=== PATIENT | female | born 1960 | race Caucasian/White ===

== ENCOUNTER → 2019-12-09 13:20 | Outpatient (BNVA) | payer MEDICARE, MEDICAID, SELFPAY | PROVIDERS: PCP Internal Medicine; Referring Provider Internal Medicine; Visit Provider Dietitian, Registered | DX: Z76.89 Persons encountering health services in other specified circumstances (principal) ==

== ENCOUNTER → 2019-12-10 09:02 | Outpatient (BNVA) | payer MEDICARE, MEDICAID, SELFPAY | PROVIDERS: PCP Internal Medicine; Referring Provider Internal Medicine; Visit Provider Hospitalist | DX: J45.40 Moderate persistent asthma, uncomplicated (principal); G47.33 Obstructive sleep apnea (adult) (pediatric); R91.8 Other nonspecific abnormal finding of lung field; Z99.89 Dependence on other enabling machines and devices; Z87.891 Personal history of nicotine dependence; Z23 Encounter for immunization | CPT/HCPCS: 90471; 90686; 99214 ==

== ENCOUNTER 2019-12-27 10:07 | Outpatient (REF) | payer MEDICARE, MEDICAID, SELFPAY ==
--- NOTE | 2019-12-27 | PFT_ITS ---
Forced vital capacity is slightly reduced. FEV1, [id number], and MVV are normal. Post bronchodilator therapy, there is no improvement. Total lung capacity and residual volume slightly decreased. Diffusion capacity normal. CONCLUSION: There is a possible mild degree of restrictive pulmonary disorder. No evidence of obstructive airway disorder. MD MARY Elliott/REJI / [id number]
== END 2019-12-27 10:08 | disposition home or self-care (01) ==
LOC: HO.RESP 10:07
PROVIDERS: PCP Internal Medicine; Visit Provider Hospitalist
DX: J45.909 Unspecified asthma, uncomplicated (principal)
CPT/HCPCS: 94060; 94727; 94729

== ENCOUNTER → 2020-01-10 10:12 | Outpatient (BNVA) | payer MEDICARE, MEDICAID, SELFPAY | PROVIDERS: PCP Orthopaedic Surgery; Referring Provider Orthopaedic Surgery; Visit Provider Physician Assistant | DX: E66.01 Morbid (severe) obesity due to excess calories (principal); Z68.41 Body mass index [BMI] 40.0-44.9, adult | CPT/HCPCS: 99212 ==

== ENCOUNTER 2020-01-11 08:49 | Outpatient (REF) | payer MEDICARE, MEDICAID, SELFPAY ==
--- NOTE | 2020-01-11 08:52 | CT_ITS ---
EXAMINATION: CT CHEST SCREENING CLINICAL INFORMATION: Lung cancer screening COMPARISON: Previous chest CT January 2019 TECHNIQUE: Multidetector volumetric CT imaging of the chest is performed without contrast using low dose technique. Additional 2D coronal and sagittal reformatted images and axial 3D maximum intensity projection (MIP) images are generated on the CT workstation. This CT examination was performed using dose optimization techniques as appropriate, variously including the following: *Automated exposure control *Adjustment of mA and/or kV according to patient size (this includes techniques or standardized protocols for targeted exams where dose is matched to indication/reason for exam; i.e. extremities or head) *Use of iterative reconstruction technique DLP: 386 mGy-cm FINDINGS: LUNGS: There is a 2 mm left upper lobe nodule axial image 132 series 6 that is stable. There is a minimal scarring or subsegmental atelectasis in the the right middle lobe and lingula that is stable. The lungs are otherwise clear. MEDIASTINUM: The mediastinum is normal. PLEURA: There is no pleural effusion. No pleural mass or thickening. AXILLA: No lymphadenopathy. UPPER ABDOMEN: The liver is low in attenuation suggestive of fatty infiltration. OSSEOUS STRUCTURES: Unremarkable. CT/CT lung screening IMPRESSION: Stable small left upper lobe pulmonary nodule. Fatty liver. ASSESSMENT: Lung-RADS category 2: Benign RECOMMENDATION: Annual low-dose chest CT follow-up recommended.
== END 2020-01-11 08:50 | disposition home or self-care (01) ==
LOC: HO.CT 08:49
PROVIDERS: PCP Internal Medicine; Visit Provider Surgery
DX: Z12.2 Encounter for screening for malignant neoplasm of respiratory organs (principal); Z87.891 Personal history of nicotine dependence
CPT/HCPCS: 71250

== ENCOUNTER → 2020-01-25 08:07 | Outpatient (BNVA) | payer MEDICARE, MEDICAID, SELFPAY | PROVIDERS: Visit Provider Physician Assistant | DX: E66.01 Morbid (severe) obesity due to excess calories (principal); Z68.41 Body mass index [BMI] 40.0-44.9, adult | CPT/HCPCS: 99212 ==

== ENCOUNTER → 2020-02-07 08:15 | Outpatient (BNVA) | payer MEDICARE, MEDICAID, SELFPAY | PROVIDERS: PCP Internal Medicine; Visit Provider Physician Assistant | DX: Z76.89 Persons encountering health services in other specified circumstances (principal) ==

== ENCOUNTER → 2020-02-28 09:08 | Outpatient (BNVA) | payer MEDICARE, MEDICAID, SELFPAY | PROVIDERS: PCP Internal Medicine; Visit Provider Physician Assistant | DX: E66.01 Morbid (severe) obesity due to excess calories (principal); Z68.41 Body mass index [BMI] 40.0-44.9, adult | CPT/HCPCS: Q3014 ==

== ENCOUNTER → 2020-04-28 08:17 | Outpatient (BNVA) | payer MEDICARE, MEDICAID, SELFPAY | PROVIDERS: PCP Internal Medicine; Visit Provider Physician Assistant ==

== ENCOUNTER → 2020-05-30 10:29 | Outpatient (BNVA) | payer MEDICARE, MEDICAID, SELFPAY | PROVIDERS: PCP Internal Medicine; Visit Provider Surgery | DX: E66.01 Morbid (severe) obesity due to excess calories (principal); Z68.41 Body mass index [BMI] 40.0-44.9, adult | CPT/HCPCS: 99212 ==

== ENCOUNTER → 2020-06-05 09:19 | Outpatient (BNVA) | payer MEDICARE, MEDICAID, SELFPAY | PROVIDERS: PCP Internal Medicine; Visit Provider Hospitalist | DX: G47.33 Obstructive sleep apnea (adult) (pediatric) (principal); R91.8 Other nonspecific abnormal finding of lung field; J45.40 Moderate persistent asthma, uncomplicated | CPT/HCPCS: 99212 ==

== ENCOUNTER → 2020-09-07 10:26 | Outpatient (BNVA) | payer MEDICARE, MEDICAID, SELFPAY | PROVIDERS: PCP Internal Medicine; Visit Provider Surgery | DX: E66.01 Morbid (severe) obesity due to excess calories (principal); Z68.41 Body mass index [BMI] 40.0-44.9, adult | CPT/HCPCS: 99212 ==

== ENCOUNTER → 2020-11-08 08:53 | Outpatient (REF) | payer MEDICARE, MEDICAID, SELFPAY ==
--- NOTE | 2020-11-08 09:02 | ECG_ITS ---
Test Reason : SOB Blood Pressure : / mmHG Vent. Rate : 072 BPM Atrial Rate : 072 BPM P-R Int : 140 ms QRS Dur : 086 ms QT Int : 390 ms P-R-T Axes : 046 001 027 degrees QTc Int : 427 ms Normal sinus rhythm Normal ECG When compared with ECG of 17-NOV-2019 07:40, No significant change was found Referred By: Yarelis Charles Electronically Signed By:MALU OMSCOSO
== END ==
LOC: HO.CARD 08:53
PROVIDERS: Visit Provider Surgery
DX: Z01.818 Encounter for other preprocedural examination (principal); R06.02 Shortness of breath
CPT/HCPCS: 93005

== ENCOUNTER → 2021-02-16 08:59 | Outpatient (BNVA) | payer MEDICARE, MEDICAID, SELFPAY | PROVIDERS: PCP Internal Medicine; Visit Provider Hospitalist | DX: J45.41 Moderate persistent asthma with (acute) exacerbation (principal); J02.9 Acute pharyngitis, unspecified; R91.8 Other nonspecific abnormal finding of lung field; G47.33 Obstructive sleep apnea (adult) (pediatric); Z99.89 Dependence on other enabling machines and devices | CPT/HCPCS: 99212 ==

== ENCOUNTER 2021-03-06 08:23 | Outpatient (REF) | payer MEDICARE, MEDICAID, SELFPAY ==
[2021-03-06 09:23] LABS: Strep A Nucleic Acid Negative (Negative)
== END 2021-03-06 08:24 | disposition home or self-care (01) ==
LOC: HO.LNP 08:23
PROVIDERS: PCP Internal Medicine; Visit Provider Hospitalist
DX: J02.9 Acute pharyngitis, unspecified (principal); J45.40 Moderate persistent asthma, uncomplicated; G47.33 Obstructive sleep apnea (adult) (pediatric); R91.8 Other nonspecific abnormal finding of lung field; Z99.89 Dependence on other enabling machines and devices
CPT/HCPCS: 36415; 87651; 99212

== ENCOUNTER → 2021-04-30 10:16 | Outpatient (BNVA) | payer MEDICARE, MEDICAID, SELFPAY | PROVIDERS: PCP Internal Medicine; Visit Provider Hospitalist | DX: J45.40 Moderate persistent asthma, uncomplicated (principal); G47.33 Obstructive sleep apnea (adult) (pediatric); R91.8 Other nonspecific abnormal finding of lung field; Z79.899 Other long term (current) drug therapy; Z99.89 Dependence on other enabling machines and devices | CPT/HCPCS: 99212 ==

== ENCOUNTER 2021-05-10 10:58 | Outpatient (REF) | payer MEDICARE, MEDICAID, SELFPAY ==
--- NOTE | ~2021-05-10 | CT_ITS ---
EXAMINATION: CT CHEST SCREENING CLINICAL INFORMATION: Former smoker quit 10 years ago. 30 pack-year history. COMPARISON: Previous chest CT January 2010 TECHNIQUE: Multidetector volumetric CT imaging of the chest is performed without contrast using low dose technique. Additional 2D coronal and sagittal reformatted images and axial 3D maximum intensity projection (MIP) images are generated on the CT workstation. This CT examination was performed using dose optimization techniques as appropriate, variously including the following: *Automated exposure control *Adjustment of mA and/or kV according to patient size (this includes techniques or standardized protocols for targeted exams where dose is matched to indication/reason for exam; i.e. extremities or head) *Use of iterative reconstruction technique DLP: 69 mGy-cm FINDINGS: LUNGS: The 2 mm left upper lobe nodule axial image 125 is stable. The lungs are otherwise clear. No new pulmonary nodule is seen. No endobronchial or endotracheal lesion. MEDIASTINUM: The mediastinum is normal. PLEURA: There is no pleural effusion. No pleural mass or thickening. AXILLA: No lymphadenopathy. UPPER ABDOMEN: There is fatty infiltration of the liver. OSSEOUS STRUCTURES: Unremarkable. CT/CT lung screening IMPRESSION: Stable small left upper lobe nodule. Fatty liver. ASSESSMENT: Lung-RADS category 2: Benign RECOMMENDATION: Annual low-dose chest CT follow-up recommended.
== END 2021-05-10 10:59 | disposition home or self-care (01) ==
LOC: HO.CT 10:58
PROVIDERS: PCP Internal Medicine; Visit Provider Physician Assistant Medical
DX: Z87.891 Personal history of nicotine dependence (principal)
CPT/HCPCS: 71271

== ENCOUNTER → 2021-12-28 11:13 | Outpatient (BNVA) | payer MEDICARE, MEDICAID, SELFPAY | PROVIDERS: PCP Internal Medicine; Visit Provider Hospitalist | DX: J45.40 Moderate persistent asthma, uncomplicated (principal); G47.33 Obstructive sleep apnea (adult) (pediatric); R91.8 Other nonspecific abnormal finding of lung field; Z99.89 Dependence on other enabling machines and devices; Z23 Encounter for immunization | CPT/HCPCS: 90471; 90686; 99212 ==

== ENCOUNTER 2022-01-21 08:37 | Outpatient (REF) | payer MEDICARE, MEDICAID, SELFPAY ==
--- NOTE | 2022-01-21 | PFT_ITS ---
INDICATION: Asthma. SPIROMETRY: FEV1 to FVC 88% with an FEV1 of 1.89 L, which is 78% predicted. An FVC of 2.15 L, which is 68% predicted. No significant response to bronchodilators noted. Maximum voluntary ventilation 89% predicted. LUNG VOLUMES: Total lung capacity 73% predicted with an expiratory reserve volume of 16% predicted. DIFFUSION CAPACITY: DLCO 80% predicted. COMPARISONS: PFTs from 2020. INTERPRETATION: No obstructive ventilatory defects, and no significant response to bronchodilators noted. Normal maximum voluntary ventilation. The patient does have a restrictive ventilatory defect consistent with mild restrictive lung disease. In addition to that, there is a significant decrease in the expiratory reserve volume secondary to likely an elevated BMI. The diffusion capacity is within normal limits. When compared to 2019, there is a trend decrease in the FVC, a trend decrease in the FEV1, a trend decrease in the total lung capacity, and a trend increase in the diffusion capacity. Clinical correlation warranted. MD KRISS Mckeon/REJI / [id number]
== END 2022-01-21 08:38 | disposition home or self-care (01) ==
LOC: HO.RESP 08:37
PROVIDERS: PCP Internal Medicine; Visit Provider Hospitalist
DX: J45.909 Unspecified asthma, uncomplicated (principal)
CPT/HCPCS: 94060; 94727; 94729

== ENCOUNTER 2022-06-05 08:53 | Outpatient (REF) | payer MEDICARE, MEDICAID, SELFPAY ==
--- NOTE | ~2022-06-05 | CT_ITS ---
EXAMINATION: CT CHEST SCREENING CLINICAL INFORMATION: Personal history of nicotine dependence. COMPARISON: CT chest 05/10/2021. TECHNIQUE: Multidetector volumetric CT imaging of the chest is performed without contrast using low dose technique. Additional 2D coronal and sagittal reformatted images and axial 3D maximum intensity projection (MIP) images are generated on the CT workstation. This CT examination was performed using dose optimization techniques as appropriate, variously including the following: *Automated exposure control *Adjustment of mA and/or kV according to patient size (this includes techniques or standardized protocols for targeted exams where dose is matched to indication/reason for exam; i.e. extremities or head) *Use of iterative reconstruction technique DLP: 73 mGy-cm FINDINGS: LUNGS: The lungs are expanded and clear of acute pneumonic process. There is a 2 mm nodule left upper lobe posteriorly on axial image 37/9 and 129/6. No additional nodules seen. No ground-glass density or mass. MEDIASTINUM: The thyroid lobes are symmetrical and normal. The central trachea and the bronchi are widely patent. The heart size and great vessels are normal caliber. No pericardial effusion seen. No abnormal size mediastinal lymph nodes or mass. There are small reactive lymph nodes, maximum short axis 5 mm pretracheal image 19/3. CORONARY ARTERY CALCIFICATION: None visualized on this study. PLEURA: There is no pleural effusion. No pleural mass or thickening. AXILLA: No lymphadenopathy. UPPER ABDOMEN: Unremarkable OSSEOUS STRUCTURES: No aggressive lytic or sclerotic process. There is an old healed right 6th lateral rib fracture. CT/CT lung screening IMPRESSION: 2 mm nodule left upper lobe. No change from the last CT exam 05/10/2021. ASSESSMENT: Lung-RADS category 2: Benign RECOMMENDATION: Low-dose annual CT chest followup.
== END 2022-06-05 08:54 | disposition home or self-care (01) ==
LOC: HO.CT 08:53
PROVIDERS: PCP Internal Medicine; Visit Provider Physician Assistant Medical
DX: Z12.2 Encounter for screening for malignant neoplasm of respiratory organs (principal); Z87.891 Personal history of nicotine dependence
CPT/HCPCS: 71271

== ENCOUNTER 2022-12-30 09:21 | Outpatient (AMB) | payer MEDICARE, MEDICAID, SELFPAY ==
--- NOTE | 2022-12-30 09:22 | MHC.OFFVIS ---
Intake Vital Signs 12/30/22 09:23 Height 5 ft 3 in Weight 225 lb 15.581 oz BMI 40.0 BP 132/70 Blood Pressure Location Rt brachial Position Sitting Pulse 71 Pulse Source Doppler Pulse Oximetry (%) 97 Oxygen Delivery Method Room Air Intake Visit Reasons: COPD Allergies No Known Allergies Allergy (Verified 12/30/22 09:26) HPI HPI Comments History of Present Illness Details The patient is a 62-year-old woman with a known history of asthma, pulmonary nodules and obstructive sleep apnea on CPAP. Her respiratory therapy has been doing well on her current therapy. Although, she does complaint of tremors using the Symbicort. We did talk about trying to reduce the dose to 1 puff twice a day. however, if she continues with adverse side effects we can consider long-acting muscarinic antagonist. She does not use her rescue inhaler more than twice a week at this time. She does use her CPAP. The CPAP therapy continues to be affecting beneficial. Her new mask is much improved. She does use her CPAP more than 4 hours a night. In regards to her pulmonary nodules last CT scan of the chest personally reviewed by me was for January 2019. she is scheduled to have a repeat CT scan next month. She did also have some atelectasis/ pulmonary fibrosis noted on her last CT scan. 04/30/2021 the patient is here for a pulmonary follow-up visit. She is feeling better. She completed the course of antibiotics with good effect. She denies any significant coughing or shortness of breath or wheezing. Although still does not feel 100%. The patient has been using her CPAP. The CPAP therapy continues to be affecting beneficial. We did provide her with nasal pillows which for her seemed to work better than the full face mask although they bother her nostrils. Therefore, I will provide her with a N30i nasal cradle that she will try to see if she tolerates that better. Otherwise she continues with respiratory therapy 12/28/2021 the patient is here for a pulmonary follow-up visit. Overall the patient has been doing well. She did bring her CPAP. She has been using the CPAP more than 4 hours a night. The therapy has been affecting beneficial. We did not have to adjust her pressures since her AHI is below 1. the machine is still working well and she is getting supplies readily to her [employer] company. However, she has been getting a lot of condensation on the tubing. She does not have the heated tubing. I will send a prescription to her [employer] company requesting specifically heated tubing for her AirSense 10 APAP. In regards of her asthma she seems to be stable on the Symbicort. She is using it daily. She has not required her rescue inhaler. The patient is looking to exercise and lose weight. Although he has had hard time. She is been considering bariatric surgery. I did recommend she needs evaluate the possibility of medical weight loss programs. 12/30/2022 the patient is here for a pulmonary follow-up visit. Overall she is doing well from a respiratory status. She continues uses Symbicort inhaler. Next year is going to be off sedation she is going to have to change based on our formulary. Will deal with that next year. She has not had to use any prednisone and she has not had to use her rescue inhaler. She does complaint of right lower extremity pain and swelling. This been going on for few weeks. She is concerned about a potential blood clot. The patient does not give a history. Although because of her symptoms will go ahead and request an ultrasound to rule out DVT. The patient also has been using her CPAP at nighttime. CPAP therapy continues to be affecting beneficial. She does use it for more than 4 hours a night. The last time looked machine her settings were good and her AHI was well below 1. The patient is considering weight loss programs. She does not want have surgery. She is going to look into medical weight loss at this time. 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 does not with ongoing issue of the feeding need again does some swelling of the [facility] Medical History (Updated 12/30/22 @ 09:32 by Fly Main MD) Pharyngitis Asthma-COPD overlap syndrome Morbid obesity JACY on CPAP Pulmonary nodules Asthma Surgical History History of arthroscopic knee surgery S/P removal of thyroid nodule S/P left knee arthroscopy Hx of colonoscopy S/P endometrial ablation Previous back surgery Family History Father Bladder cancer Mother COPD (chronic obstructive pulmonary disease) Pacemaker HTN (hypertension) Brother No problems noted. Sister No problems noted. Sister No problems noted. Daughter No problems noted. Daughter No problems noted. Other Asthma Social History Household Members: Friend(s) Household Members Other:: friend Patient Tobacco Use Status: Former Tobacco user Quit Date: 2009 Years Smoked: 30 yrs Second Hand Smoke Exposure: No Review of Systems Const Denies night sweats and Reports weight gain ENT Denies change in voice, Reports dry mouth, Denies hoarseness, Denies lip swelling, Denies mouth pain, Reports nasal congestion, Denies nasal discharge, Denies sore throat and Denies tongue swelling Card Denies chest pain Resp Reports cough GI Denies abdominal pain Musc Denies no additional complaints Neuro Denies Neuro-related abnormal movements Psych Denies no additional complaints Steven/Lymph Denies easy bleeding and Denies lymphadenopathy Aller/Immun Denies lip swelling and Denies tongue swelling Physical Exam Vital Signs: Last Vital Signs Pulse 71 12/30/22 09:23 BP 132/70 12/30/22 09:23 Pulse Ox 97 12/30/22 09:23 Oxygen Delivery Method Room Air 12/30/22 09:23 BMI result Body Mass Index 40.0 Const General: alert Neck Neck: Yes normal visual inspection, Yes full ROM and Yes no lymphadenopathy Chest Chest palpation & inspection: normal inspection of the chest Resp Effort & Inspection: normal respiratory effort Auscultation: clear to auscultation bilaterally and no wheezes Cardio Rate: regular rate Rhythm: regular rhythm Heart sounds: S1 normal heart sound present and S2 normal heart sound present GI Palpation (GI): Soft to palpation and nontender Auscultation: normal bowel sounds Skin General skin exam: rashes and/or lesions noted Assessment & Plan Assessment & Plan (1) Asthma: Code(s): J45.909 - Unspecified asthma, uncomplicated Qualifiers: Asthma complication type: uncomplicated Asthma persistence: persistent Asthma severity: moderate Qualified Code(s): J45.40 - Moderate persistent asthma, uncomplicated (2) JACY on CPAP: Code(s): G47.33 - Obstructive sleep apnea (adult) (pediatric); Z99.89 - Dependence on other enabling machines and devices (3) Pulmonary nodules: Comment: Low-dose CT scan scheduled for January 2020. her last CT scan demonstrated subcentimeter pulmonary nodules in addition to bilateral atelectasis/ scarring Code(s): R91.8 - Other nonspecific abnormal finding of lung field (4) Right leg swelling: Code(s): M79.89 - Other specified soft tissue disorders Plan Continue respiratory dtherapy: Symbicort twice a day short-acting beta agonist as needed Continue CPAP therapy, provided N30i, Provided chin strap. Adjusted APAP RLE doppler requested neg for DVT Follow-up in 8-12 months Orders: Orders US venous duplex LE RT Today M79.89 - Other specified soft tissue disorders Coding Level of Care Code Est Pt Level 4 (76656) Diagnoses Moderate persistent asthma without complication J45.40 Asthma complication type: uncomplicated Asthma persistence: persistent Asthma severity: moderate JACY on CPAP G47.33; Z99.89 Pulmonary nodules R91.8 Right leg swelling M79.89 Time Spent (min) 16
[2022-12-30 09:23] VITALS: BP 132/70; PULSE 71; O2SAT 97; BMI 40.0
== END 2022-12-30 09:42 | disposition home or self-care (01) ==
PROVIDERS: PCP Internal Medicine; Visit Provider Hospitalist
DX: J45.40 Moderate persistent asthma, uncomplicated (principal); G47.33 Obstructive sleep apnea (adult) (pediatric); Z99.89 Dependence on other enabling machines and devices; R91.8 Other nonspecific abnormal finding of lung field; M79.89 Other specified soft tissue disorders
CPT/HCPCS: 99214

== ENCOUNTER → 2022-12-30 09:21 | Outpatient (BNVA) | payer MEDICARE, MEDICAID, SELFPAY | PROVIDERS: PCP Internal Medicine; Visit Provider Hospitalist ==

== ENCOUNTER 2022-12-30 09:44 | Outpatient (REF) | payer MEDICARE, MEDICAID, SELFPAY ==
--- NOTE | ~2022-12-30 | US_ITS ---
EXAMINATION: US VENOUS ULTRASOUND WITH DOPPLER LOWER EXTREMITY, RIGHT CLINICAL INFORMATION: Swelling COMPARISON: None available. TECHNIQUE: Ultrasound of the deep veins is performed from the hip to the calf with compression sonography and color and pulse Doppler assessment. Spectral analysis with color-flow imaging is performed. FINDINGS: There is normal venous compression and respiratory variation and augmented flow. The visualized common femoral vein, superficial femoral vein, profunda femoral vein, popliteal vein, and the trifurcation region shows no evidence of deep venous thrombosis. The contralateral common femoral vein demonstrates normal respiratory variation. US/US venous duplex LE RT IMPRESSION: No DVT demonstrated in the right lower extremity.
== END 2022-12-30 09:45 | disposition home or self-care (01) ==
LOC: HO.US 09:44
PROVIDERS: PCP Internal Medicine; Visit Provider Hospitalist
DX: R60.0 Localized edema (principal)
CPT/HCPCS: 93971; 99212

== ENCOUNTER 2023-06-26 13:33 | Outpatient (REF) | payer MEDICARE, MEDICAID, SELFPAY ==
--- NOTE | ~2023-06-26 | CT_ITS ---
EXAMINATION: CT CHEST SCREENING CLINICAL INFORMATION: Nicotine dependence, cigarettes, uncomplicated. The patient has a 24 pack-year history of smoking, having quit 24 years ago. COMPARISON: CT chest 06/05/2022. X-ray chest 06/19/2018. TECHNIQUE: Multidetector volumetric CT imaging of the chest is performed on a Siemens SOMATOM Definition scanner without contrast using low dose technique. Additional 2D coronal and sagittal reformatted images and axial 3D maximum intensity projection (MIP) images are generated on the CT workstation. This CT examination was performed using dose optimization techniques as appropriate, variously including the following: *Automated exposure control *Adjustment of mA and/or kV according to patient size (this includes techniques or standardized protocols for targeted exams where dose is matched to indication/reason for exam; i.e. extremities or head) *Use of iterative reconstruction technique DLP: 62 mGy-cm FINDINGS: LUNGS: 2 mm left upper lobe nodule is unchanged (5:96 compare prior 6:129). No new, increasing or concerning pulmonary nodules are present. The lungs are clear with no evidence of inflammation or nodules. MEDIASTINUM: The mediastinum is normal. CORONARY ARTERY CALCIFICATION: None visualized on this study. PLEURA: There is no pleural effusion. No pleural mass or thickening. AXILLA: No lymphadenopathy. UPPER ABDOMEN: There is hepatic steatosis. OSSEOUS STRUCTURES: Unremarkable. CT/CT lung screening IMPRESSION: No evidence of malignancy. ASSESSMENT: Lung-RADS category 2: Benign RECOMMENDATION: Routine annual low-dose CT screening in 12 months.
== END 2023-06-26 13:34 | disposition home or self-care (01) ==
LOC: HO.CT 13:33
PROVIDERS: PCP Internal Medicine; Visit Provider Nurse Practitioner Family
DX: Z12.2 Encounter for screening for malignant neoplasm of respiratory organs (principal); F17.210 Nicotine dependence, cigarettes, uncomplicated
CPT/HCPCS: 71271

== ENCOUNTER 2023-08-22 14:27 | Outpatient (AMB) | payer MEDICARE, MEDICAID, SELFPAY ==
--- NOTE | 2023-08-22 14:31 | A.OFFVIS_ITS ---
Vital Signs 08/22/23 14:32 Weight 220 lb 8 oz BP 110/58 L Blood Pressure Location Rt brachial Position Sitting Pulse 97 Pulse Source Pulse Oximeter Pulse Oximetry (%) 96 Oxygen Delivery Method Room Air Intake Visit Reasons: productive cough Allergies No Known Allergies Allergy (Verified 08/22/23 14:36) HPI HPI productive cough: Details: Annemarie is a pleasant 62 year old female, former smoker, followed by Dr. Main for asthma COPD overlap syndrome, pulmonary nodules and JACY on CPAP. At baseline, she has been moderately controlled on Symbicort. She did state that her symbicort will no longer be covered by insurance, so she has only been using half the daily dose, 2 inhalations daily. She notes that she has been without albuterol for quite some time and her duoneb is . Today she presents for an acute visit. She reports worsening harsh productive cough with yellow sputum that has specs of blood, chest tightness, increased dyspnea, wheezing and pain on inspiration/cough. She denies large volume hemoptysis. She denies fevers or chills. She reports being around grandchildren who were recently sick with upper respiratory symptoms. [facility] Medical History (Updated 08/22/23 @ 15:03 by Delaney Lester NP) Pharyngitis Asthma-COPD overlap syndrome Morbid obesity JACY on CPAP Pulmonary nodules Asthma Surgical History History of arthroscopic knee surgery S/P removal of thyroid nodule S/P left knee arthroscopy Hx of colonoscopy S/P endometrial ablation Previous back surgery Family History Father Bladder cancer Mother COPD (chronic obstructive pulmonary disease) Pacemaker HTN (hypertension) Brother No problems noted. Sister No problems noted. Sister No problems noted. Daughter No problems noted. Daughter No problems noted. Other Asthma Social History Household Members: Friend(s) Household Members Other:: friend Patient Tobacco Use Status: Former Tobacco user Years Smoked: 30 yrs Second Hand Smoke Exposure: No Review of Systems Const Denies chills, Denies excessive sweating, Denies fever(s), Denies headache(s) and Denies night sweats Eyes Denies dry eyes, Denies irritation and Denies itchy eyes ENT Reports Normal hearing present, Denies headache(s), Denies nasal congestion, Denies nasal discharge, Denies post nasal drip and Denies sore throat Card Denies chest pain, Denies chest pain at rest, Denies chest pain with activity, Denies claudication, Denies leg edema, Denies orthopnea and Denies paroxysmal nocturnal dyspnea Resp Denies stridor Musc Denies myalgias Neuro Reports Normal hearing present and Denies headache(s) Endo Denies excessive sweating Steven/Lymph Denies lymphadenopathy Aller/Immun Denies itchy eyes and Denies seasonal rhinorrhea Physical Exam Vital Signs: Last Vital Signs Pulse 97 08/22/23 14:32 BP 110/58 L 08/22/23 14:32 Pulse Ox 96 08/22/23 14:32 Oxygen Delivery Method Room Air 08/22/23 14:32 Const General: cooperative, no acute distress, well developed and alert Orientation/consciousness: patient oriented x3 Limitations: no limitations HEENT Head: Yes normal to inspection, Yes normocephalic and Yes atraumatic Ears: hearing grossly normal bilaterally and external ears normal Eyes General: appearance normal, both eyes and all related structures Eyelids: Yes eyelids normal Sclerae: sclerae normal EOM: EOMs intact bilaterally Neck Neck: Yes normal visual inspection and Yes no lymphadenopathy Lymphatic: no lymphadenopathy noted Chest Chest palpation & inspection: normal inspection of the chest Resp Other: postexhalation cough, improved with duoneb Effort & Inspection: normal respiratory effort, able to speak in complete sentences, no audible wheezes, no stridor, not tachypneic, no tripod positioning and no use of accessory muscles Cardio Jugular venous distension: no JVD Rate: regular rate Rhythm: regular rhythm Skin Other: warm, dry General skin exam: no rashes or lesions noted Neuro General: patient oriented x3 Cranial nerves: Yes Normal hearing present Cognition (Neuro): normal cognition Gait exam (Neuro): Normal gait present Extrem General: Yes normal to inspection, Yes capillary refill normal, Yes no clubbing, cyanosis or edema and Yes no pedal edema Psych Appearance: grossly normal and well kempt Speech and movement: Normal speech and movement present and Clear speech present Affect: normal affect Attitude: cooperative Thought process: Normal thought process present Thought content: Normal thought content present Insight: Good insight present (Psych) Judgement: Good judgement present (Psych) Office Procedures Nebulizer Treatment Nebulizer Treatment 48685-Sodgncpsz/MDI RX initial, or Nebulizer Subsequent Treatment Office Meds ipratropium 0.5 mg-albuterol 3 mg (2.5 mg base)/3 mL nebulization soln Performing Provider: Delaney Lester NP Performing Location: [facility] Administered by: Lena Mccurdy LPN on 08/22/23 15:19 Dose Route Admin Location Dispensed Lot Number Expiration Date [facility] [employer]idential [employer] 3 mL inhalation 3 mL [id number] 12/31/24 91926-461-47 [employer] Assessment & Plan Assessment & Plan (1) Asthma: Code(s): J45.909 - Unspecified asthma, uncomplicated Category: Medical Qualifiers: Asthma severity: moderate Asthma persistence: persistent Asthma complication type: uncomplicated Qualified Code(s): J45.40 - Moderate persistent asthma, uncomplicated (2) Bronchitis: Code(s): J40 - Bronchitis, not specified as acute or chronic Category: Medical Plan Annemarie presents with worsening bronchitic symptoms and poor control of asthma. Will send in zpak, prednisone and refill albuterol/duoneb. Will also send in Advair HFA in place of Symbicort, since this is no longer covered by insurance. She is aware to call if it is not covered and will reach out to insurance company for a list of covered inhalers. Given the pleuritic pain, will send for a CXR today and send in cough suppressant. Patient has tolerated in the past. She is aware if symptoms worsen to seek urgent care and if develops hemoptysis, a teaspoon, will seek emergent care. All questions were answered and patient is in agreement of plan. Will follow up with Dr. Main for regularly scheduled appointment or sooner if needed. Orders: Orders AMB Nebulizer Treatment 08/22/23 J44.9 - Chronic obstructive pulmonary disease, unspecified XR chest 2V 08/22/23 J40 - Bronchitis, not specified as acute or chronic Medications: New azithromycin For 250 mg dose pack: take 500 mg today (day 1), then 250 mg for 4 days (days 2-5) PO 6 tabs 0RF codeine-guaifenesin 10-100 mg/5 mL 10 mL PO Q6H PRN 473 mL 0RF cough fluticasone propion-salmeterol 115-21 mcg/actuation (Advair HFA) 2 puffs inhalation Q12H 12 grams 3RF prednisone 40 mg (2 x 20 mg) PO DAILY 10 tabs 0RF ipratropium-albuterol 0.5 mg-3 mg(2.5 mg base)/3 mL 3 mL inhalation Q6H PRN 90 mL 0RF wheezing J44.9 - Chronic obstructive pulmonary disease, unspecified Coding Level of Care Code Est Pt Level 4 (34350) Diagnoses Moderate persistent asthma without complication J45.40 Asthma severity: moderate Asthma persistence: persistent Asthma complication type: uncomplicated Bronchitis J40 CPT Codes Nebulizer Treatment - Nebulizer Treatment, initial or subsequent: 41634- Nebulizer/MDI RX initial, or Nebulizer Subsequent Treatment ([id number])
[2023-08-22 14:32] VITALS: BP 110/58; PULSE 97; O2SAT 96
== END 2023-08-22 15:20 | disposition home or self-care (01) ==
PROVIDERS: PCP Internal Medicine; Visit Provider Nurse Practitioner Family
DX: J45.40 Moderate persistent asthma, uncomplicated (principal); J40 Bronchitis, not specified as acute or chronic
CPT/HCPCS: 99214

== ENCOUNTER → 2023-08-22 14:27 | Outpatient (BNVA) | payer MEDICARE, MEDICAID, SELFPAY | PROVIDERS: PCP Internal Medicine; Visit Provider Nurse Practitioner Family | DX: J45.40 Moderate persistent asthma, uncomplicated (principal); J40 Bronchitis, not specified as acute or chronic | CPT/HCPCS: 94640; 99212 ==

== ENCOUNTER 2023-08-25 06:02 | Outpatient (REF) | payer MEDICARE, MEDICAID, SELFPAY ==
--- NOTE | ~2023-08-25 | XR_ITS ---
EXAMINATION: XR CHEST CLINICAL INFORMATION: Bronchitis. COMPARISON: 06/29/2018. TECHNIQUE: 2 views of the chest were obtained. FINDINGS: The cardiomediastinal silhouette is within normal limits and stable. There is no focal lung consolidation or pleural effusions. The bony structures and soft tissues are unremarkable. XR/XR chest 2V IMPRESSION: No acute cardiopulmonary process.
== END 2023-08-25 06:03 | disposition home or self-care (01) ==
LOC: HO.XRAY 06:02
PROVIDERS: PCP Internal Medicine; Visit Provider Nurse Practitioner Family
DX: J40 Bronchitis, not specified as acute or chronic (principal)
CPT/HCPCS: 71046

== ENCOUNTER 2023-10-09 14:42 | Outpatient (AMB) | payer MEDICARE, MEDICAID, SELFPAY ==
[2023-10-09 14:44] VITALS: BP 138/77; PULSE 80; O2SAT 98; BMI 38.6
--- NOTE | 2023-10-09 14:44 | A.OFFVIS_ITS ---
Vital Signs 10/09/23 14:44 Height 5 ft 3 in Weight 218 lb BMI 38.6 BP 138/77 Blood Pressure Location Lt brachial Position Sitting Pulse 80 Pulse Source Doppler Pulse Oximetry (%) 98 Oxygen Delivery Method Room Air Intake Visit Reasons: productive cough Allergies No Known Allergies Allergy (Verified 08/22/23 14:36) HPI Comments Details: The patient is a 62-year-old woman with a known history of asthma, pulmonary nodules and obstructive sleep apnea on CPAP. Her respiratory therapy has been doing well on her current therapy. Although, she does complaint of tremors using the Symbicort. We did talk about trying to reduce the dose to 1 puff twice a day. however, if she continues with adverse side effects we can c onsider long-acting muscarinic antagonist. She does not use her rescue inhaler more than twice a week at this time. She does use her CPAP. The CPAP therapy continues to be affecting beneficial. Her new mask is much improved. She does use her CPAP more than 4 hours a night. In regards to her pulmonary nodules last CT scan of the chest personally reviewed by me was for January 2019. she is scheduled to have a repeat CT scan next month. She did also have some atelectasis/ pulmonary fibrosis noted on her last CT scan. 04/30/2021 the patient is here for a pulmonary follow-up visit. She is feeling better. She completed the course of antibiotics with good effect. She denies any significant coughing or shortness of breath or wheezing. Although still does not feel 100%. The patient has been using her CPAP. The CPAP therapy continues to be affecting beneficial. We did provide her with nasal pillows which for her seemed to work better than the full face mask although they bother her nostrils. Therefore, I will provide her with a N30i nasal cradle that she will try to see if she tolerates that better. Otherwise she continues with respiratory therapy 12/28/2021 the patient is here for a pulmonary follow-up visit. Overall the patient has been doing well. She did bring her CPAP. She has been using the CPAP more than 4 hours a night. The therapy has been affecting beneficial. We did not have to adjust her pressures since her AHI is below 1. the machine is still working well and she is getting supplies readily to her [employer] company. However, she has been getting a lot of condensation on the tubing. She does not have the heated tubing. I will send a prescription to her [employer] company requesting specifically heated tubing for her AirSense 10 APAP. In regards of her asthma she seems to be stable on the Symbicort. She is using it daily. She has not required her rescue inhaler. The patient is looking to exercise and lose weight. Although he has had hard time. She is been considering bariatric surgery. I did recommend she needs evaluate the possibility of medical weight loss programs. 12/30/2022 the patient is here for a pulmonary follow-up visit. Overall she is doing well from a respiratory status. She continues uses Symbicort inhaler. Next year is going to be off sedation she is going to have to change based on our formulary. Will deal with that next year. She has not had to use any prednisone and she has not had to use her rescue inhaler. She does complaint of right lower extremity pain and swelling. This been going on for few weeks. She is concerned about a potential blood clot. The patient does not give a history. Although because of her symptoms will go ahead and request an ultrasound to rule out DVT. The patient also has been using her CPAP at nighttime. CPAP therapy continues to be affecting beneficial. She does use it for more than 4 hours a night. The last time looked machine her settings were good and her AHI was well below 1. The patient is considering weight loss programs. She does not want have surgery. She is going to look into medical weight loss at this time. She will continue with current respiratory therapy will follow-up in a year's time. 10/09/2023 the patient is here for a pulmonary follow-up visit. The patient overall has been doing fair. At least from a CPAP standpoint the patient has been doing well. The CPAP therapy has been affecting beneficial. She does use her machine every night for more than 4 hours. She did bring it in. She does have an over AirSense 10. Her AHI is well below 1 which is reassuring. We did not have to make any changes on the actual settings. Although I did adjust the temperature and humidity. I did teach her how to use it for her own. Respiratory was the patient is doing well on the current respiratory inhalers. She is also participating in the lung cancer screening program and has been demonstrates stable nodules which is reassuring. We personally reviewed the CT scan together. In the meantime the patient has been having this issue with muscle weakness and pain. She did have an elevated sedimentation rate. SAPPHIRE negative. She does have some increased shortness of breath therefore unclear if this is a component of myositis that may be contributing to her shortness of breath. [id number] severity. Will go ahead and request additional blood work to see if this any myositis component or any connective tissue disease related disease. Indeed it will be important specially if is resulting worsening respiratory symptoms. Otherwise will follow-up in 6-12 months. The patient has any issues prior to the next visit she is to call for an earlier evaluation. [facility] Medical History (Updated 10/09/23 @ 22:51 by Fly Main MD) Pharyngitis Asthma-COPD overlap syndrome Morbid obesity JACY on CPAP Pulmonary nodules Asthma Surgical History History of arthroscopic knee surgery S/P removal of thyroid nodule S/P left knee arthroscopy Hx of colonoscopy S/P endometrial ablation Previous back surgery Family History Father Bladder cancer Mother COPD (chronic obstructive pulmonary disease) Pacemaker HTN (hypertension) Brother No problems noted. Sister No problems noted. Sister No problems noted. Daughter No problems noted. Daughter No problems noted. Other Asthma Social History Household Members: Friend(s) Household Members Other:: friend Patient Tobacco Use Status: Former Tobacco user Years Smoked: 30 yrs Second Hand Smoke Exposure: No Review of Systems Const Denies night sweats and Reports weight gain ENT Denies change in voice, Reports dry mouth, Denies hoarseness, Denies lip swelling, Denies mouth pain, Reports nasal congestion, Denies nasal discharge, Denies sore throat and Denies tongue swelling Card Denies chest pain Resp Reports cough GI Denies abdominal pain Musc Reports as per HPI, Reports myalgias and Reports muscle weakness Neuro Denies Neuro-related abnormal movements Psych Denies no additional complaints Steven/Lymph Denies easy bleeding and Denies lymphadenopathy Aller/Immun Denies lip swelling and Denies tongue swelling Physical Exam Vital Signs: Last Vital Signs Pulse 80 10/09/23 14:44 BP 138/77 10/09/23 14:44 Pulse Ox 98 10/09/23 14:44 Oxygen Delivery Method Room Air 10/09/23 14:44 BMI result Body Mass Index 38.6 Const General: alert Orientation/consciousness: oriented to person, oriented to place and oriented to time Neck Neck: Yes normal visual inspection, Yes full ROM and Yes no lymphadenopathy Chest Chest palpation & inspection: normal inspection of the chest Resp Effort & Inspection: normal respiratory effort Auscultation: clear to auscultation bilaterally and no wheezes Cardio Rate: regular rate Rhythm: regular rhythm Heart sounds: S1 normal heart sound present and S2 normal heart sound present GI Palpation (GI): Soft to palpation and nontender Auscultation: normal bowel sounds Skin General skin exam: rashes and/or lesions noted Neuro General: oriented to person, oriented to place and oriented to time Motor exam (neuro): 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 The patient has a 24 pack-year history of smoking, having quit 24 years ago. COMPARISON: CT chest 06/05/2022. X-ray chest 06/19/2018. TECHNIQUE: Multidetector volumetric CT imaging of the chest is performed on a Siemens SOMATOM Definition scanner without contrast using low dose technique. Additional 2D coronal and sagittal reformatted images and axial 3D maximum intensity projection (MIP) images are generated on the CT workstation. This CT examination was performed using dose optimization techniques as appropriate, variously including the following: *Automated exposure control *Adjustment of mA and/or kV according to patient size (this includes techniques or standardized protocols for targeted exams where dose is matched to indication/reason for exam; i.e. extremities or head) *Use of iterative reconstruction technique DLP: 62 mGy-cm FINDINGS: LUNGS: 2 mm left upper lobe nodule is unchanged (5:96 compare prior 6:129). No new, increasing or concerning pulmonary nodules are present. The lungs are clear with no evidence of inflammation or nodules. MEDIASTINUM: The mediastinum is normal. CORONARY ARTERY CALCIFICATION: None visualized on this study. PLEURA: There is no pleural effusion. No pleural mass or thickening. AXILLA: No lymphadenopathy. UPPER ABDOMEN: There is hepatic steatosis. OSSEOUS STRUCTURES: Unremarkable. CT/CT lung screening IMPRESSION: No evidence of malignancy. ASSESSMENT: Lung-RADS category 2: Benign RECOMMENDATION: Routine annual low-dose CT screening in 12 months. Dictated By: Lee Levi MD Signed By: <Electronically signed by Lee Levi MD in OV> 06/30/23 1419 DD/ 1405 TD/TT: Outdoor Illuminating Engineer: JENNIFER Assessment & Plan Assessment & Plan (1) Asthma: Code(s): J45.909 - Unspecified asthma, uncomplicated Category: Medical Qualifiers: Asthma complication type: uncomplicated Asthma persistence: persistent Asthma severity: moderate Qualified Code(s): J45.40 - Moderate persistent asthma, uncomplicated (2) JACY on CPAP: Code(s): G47.33 - Obstructive sleep apnea (adult) (pediatric); Z99.89 - Dependence on other enabling machines and devices Category: Medical (3) Pulmonary nodules: Comment: Low-dose CT scan scheduled for January 2020. her last CT scan demonstrated subcentimeter pulmonary nodules in addition to bilateral atelectasis/ scarring Code(s): R91.8 - Other nonspecific abnormal finding of lung field Category: Medical (4) Right leg swelling: Code(s): M79.89 - Other specified soft tissue disorders Category: Medical (5) Myositis: Comment: evaluation Code(s): M60.9 - Myositis, unspecified Category: Medical Qualifiers: Myositis type: unspecified type Myositis location: unspecified site Qualified Code(s): M60.9 - Myositis, unspecified Plan Continue respiratory dtherapy: Symbicort twice a day short-acting beta agonist as needed Continue CPAP therapy, provided N30i, Provided chin strap. Adjusted APAP bloodwork LDCT 06/2024 Follow-up in 6-12 months Orders: Orders Anti DNA DS Antibody Today M60.9 - Myositis, unspecified Cyclic Citrullinated Peptide Today M60.9 - Myositis, unspecified Myositis Assess JO1 Ab Today M60.9 - Myositis, unspecified Sjogren's Antibodies Today H04.123 - Dry eye syndrome of bilateral lacrimal glands Creatine Kinase Total Today M60.9 - Myositis, unspecified Erythrocyte Sedimentation Rate Today M60.9 - Myositis, unspecified Medications: New modafinil 100 mg PO DAILY 30 days 30 tabs 3RF Coding Level of Care Code Est Pt Level 4 (82631) Diagnoses Moderate persistent asthma without complication J45.40 Asthma complication type: uncomplicated Asthma persistence: persistent Asthma severity: moderate JACY on CPAP G47.33; Z99.89 Pulmonary nodules R91.8 Right leg swelling M79.89 Myositis, unspecified myositis type, unspecified site M60.9 Myositis type: unspecified type Myositis location: unspecified site Time Spent (min) 18
== END 2023-10-09 15:12 | disposition home or self-care (01) ==
PROVIDERS: PCP Internal Medicine; Visit Provider Hospitalist
DX: J45.40 Moderate persistent asthma, uncomplicated (principal); G47.33 Obstructive sleep apnea (adult) (pediatric); Z99.89 Dependence on other enabling machines and devices; R91.8 Other nonspecific abnormal finding of lung field; M79.89 Other specified soft tissue disorders; M60.9 Myositis, unspecified
CPT/HCPCS: 99214

== ENCOUNTER → 2023-10-09 14:42 | Outpatient (BNVA) | payer MEDICARE, MEDICAID, SELFPAY | PROVIDERS: PCP Internal Medicine; Visit Provider Hospitalist | DX: J45.40 Moderate persistent asthma, uncomplicated (principal); G47.33 Obstructive sleep apnea (adult) (pediatric); R91.8 Other nonspecific abnormal finding of lung field; M79.89 Other specified soft tissue disorders; M60.9 Myositis, unspecified; F17.210 Nicotine dependence, cigarettes, uncomplicated; Z99.89 Dependence on other enabling machines and devices | CPT/HCPCS: 99212 ==

== ENCOUNTER 2023-10-10 08:35 | Outpatient (REF) | payer MEDICARE, MEDICAID, SELFPAY ==
[2023-10-10 10:04] LABS: Erythrocyte Sedimentation Rate 24 MM/HR (0-20)
[2023-10-14 14:19] LABS: Cyclic Citrullinated Peptide <16 UNITS
[2023-10-16 11:26] LABS: Anti DNA DS Antibody <1; Antibody to SS-A Antigen <1.0 NEG; Antibody to SS-B Antigen <1.0 NEG
== END 2023-10-10 08:36 | disposition home or self-care (01) ==
LOC: HO.LAB 08:35
PROVIDERS: PCP Internal Medicine; Visit Provider Hospitalist
DX: M60.9 Myositis, unspecified (principal); H04.123 Dry eye syndrome of bilateral lacrimal glands
CPT/HCPCS: 36415; 82550; 85652; 86200; 86225; 86235

== ENCOUNTER 2024-04-06 09:41 | Outpatient (AMB) | payer MEDICARE, MEDICAID, SELFPAY ==
--- NOTE | 2024-04-06 09:44 | MHC.OFFVIS ---
Vital Signs 04/06/24 09:45 Height 5 ft 3 in Weight 208 lb 5.389 oz BMI 36.9 BP 130/76 Blood Pressure Location Rt brachial Position Sitting Pulse 72 Pulse Source Pulse Oximeter Pulse Oximetry (%) 96 Oxygen Delivery Method Room Air Intake Visit Reasons: productive cough Allergies No Known Allergies Allergy (Verified 04/06/24 09:48) HPI Comments Details: The patient is a 63-year-old woman with a known history of asthma, pulmonary nodules and obstructive sleep apnea on CPAP. Her respiratory therapy has been doing well on her current therapy. Although, she does complaint of tremors using the Symbicort. We did talk about trying to reduce the dose to 1 puff twice a day. however, if she continues with adverse side effects we can consider long-acting muscarinic antagonist. She does not use her rescue inhaler more than twice a week at this time. She does use her CPAP. The CPAP therapy continues to be affecting beneficial. Her new mask is much improved. She does use her CPAP more than 4 hours a night. In regards to her pulmonary nodules last CT scan of the chest personally reviewed by me was for January 2019. she is scheduled to have a repeat CT scan next month. She did also have some atelectasis/ pulmonary fibrosis noted on her last CT scan. 04/30/2021 the patient is here for a pulmonary follow-up visit. She is feeling better. She completed the course of antibiotics with good effect. She denies any significant coughing or shortness of breath or wheezing. Although still does not feel 100%. The patient has been using her CPAP. The CPAP therapy continues to be affecting beneficial. We did provide her with nasal pillows which for her seemed to work better than the full face mask although they bother her nostrils. Therefore, I will provide her with a N30i nasal cradle that she will try to see if she tolerates that better. Otherwise she continues with respiratory therapy 12/28/2021 the patient is here for a pulmonary follow-up visit. Overall the patient has been doing well. She did bring her CPAP. She has been using the CPAP more than 4 hours a night. The therapy has been affecting beneficial. We did not have to adjust her pressures since her AHI is below 1. the machine is still working well and she is getting supplies readily to her [employer] company. However, she has been getting a lot of condensation on the tubing. She does not have the heated tubing. I will send a prescription to her [employer] company requesting specifically heated tubing for her AirSense 10 APAP. In regards of her asthma she seems to be stable on the Symbicort. She is using it daily. She has not required her rescue inhaler. The patient is looking to exercise and lose weight. Although he has had hard time. She is been considering bariatric surgery. I did recommend she needs evaluate the possibility of medical weight loss programs. 12/30/2022 the patient is here for a pulmonary follow-up visit. Overall she is doing well from a respiratory status. She continues uses Symbicort inhaler. Next year is going to be off sedation she is going to have to change based on our formulary. Will deal with that next year. She has not had to use any prednisone and she has not had to use her rescue inhaler. She does complaint of right lower extremity pain and swelling. This been going on for few weeks. She is concerned about a potential blood clot. The patient does not give a history. Although because of her symptoms will go ahead and request an ultrasound to rule out DVT. The patient also has been using her CPAP at nighttime. CPAP therapy continues to be affecting beneficial. She does use it for more than 4 hours a night. The last time looked machine her settings were good and her AHI was well below 1. The patient is considering weight loss programs. She does not want have surgery. She is going to look into medical weight loss at this time. She will continue with current respiratory therapy will follow-up in a year's time. 10/09/2023 the patient is here for a pulmonary follow-up visit. The patient overall has been doing fair. At least from a CPAP standpoint the patient has been doing well. The CPAP therapy has been affecting beneficial. She does use her machine every night for more than 4 hours. She did bring it in. She does have an over AirSense 10. Her AHI is well below 1 which is reassuring. We did not have to make any changes on the actual settings. Although I did adjust the temperature and humidity. I did teach her how to use it for her own. Respiratory was the patient is doing well on the current respiratory inhalers. She is also participating in the lung cancer screening program and has been demonstrates stable nodules which is reassuring. We personally reviewed the CT scan together. In the meantime the patient has been having this issue with muscle weakness and pain. She did have an elevated sedimentation rate. SAPPHIRE negative. She does have some increased shortness of breath therefore unclear if this is a component of myositis that may be contributing to her shortness of breath. [id number] severity. Will go ahead and request additional blood work to see if this any myositis component or any connective tissue disease related disease. Indeed it will be important specially if is resulting worsening respiratory symptoms. Otherwise will follow-up in 6-12 months. The patient has any issues prior to the next visit she is to call for an earlier evaluation. 04/06/2024 the patient is here for a pulmonary follow-up visit. The patient overall is doing well. The patient did get a new PAP therapy. The therapy has been affecting beneficial. She is still using the N30 I mask. She has very good filling. The patient has AHI is also well below 1. Current average pressure is 9 cm. Although, she feels like the machine is not giving her adequate pressure. Therefore, we got rid of the ramp she is going to start starting 8 and maximum pressure 16. In the meantime asthma has been stable. She has inhalers but she has not required them. In addition to that she just started a weight loss injection for her significant morbid obesity. She has already lost about 20 lb since she is very motivated. She is already feeling better with less lower extremity edema. This should also help her sleep apnea. She does have a CT scan scheduled for sometime in the spring of 2024. This is through the lung cancer screening program. Will follow-up in the fall. If any issues arise prior to that she will call for an earlier assessment. [facility] Medical History (Updated 10/09/23 @ 22:51 by Fly Main MD) Pharyngitis Asthma-COPD overlap syndrome Morbid obesity JACY on CPAP Pulmonary nodules Asthma Surgical History History of arthroscopic knee surgery S/P removal of thyroid nodule S/P left knee arthroscopy Hx of colonoscopy S/P endometrial ablation Previous back surgery Family History Father Bladder cancer Mother COPD (chronic obstructive pulmonary disease) Pacemaker HTN (hypertension) Brother No problems noted. Sister No problems noted. Sister No problems noted. Daughter No problems noted. Daughter No problems noted. Other Asthma Social History Household Members: Friend(s) Household Members Other:: friend Patient Tobacco Use Status: Former Tobacco user Years Smoked: 30 yrs Second Hand Smoke Exposure: No Review of Systems Const Denies night sweats and Reports weight loss ENT Denies change in voice, Reports dry mouth, Denies hoarseness, Denies lip swelling, Denies mouth pain, Reports nasal congestion, Denies nasal discharge, Denies sore throat and Denies tongue swelling Card Denies chest pain Resp Reports cough GI Denies abdominal pain Musc Reports as per HPI, Reports myalgias and Reports muscle weakness Neuro Denies Neuro-related abnormal movements Psych Denies no additional complaints Steven/Lymph Denies easy bleeding and Denies lymphadenopathy Aller/Immun Denies lip swelling and Denies tongue swelling Physical Exam Vital Signs: Last Vital Signs Pulse 72 04/06/24 09:45 BP 130/76 04/06/24 09:45 Pulse Ox 96 04/06/24 09:45 Oxygen Delivery Method Room Air 04/06/24 09:45 BMI result Body Mass Index 36.9 Const General: alert Orientation/consciousness: oriented to person, oriented to place and oriented to time Neck Neck: Yes normal visual inspection, Yes full ROM and Yes no lymphadenopathy Chest Chest palpation & inspection: normal inspection of the chest Resp Effort & Inspection: normal respiratory effort Auscultation: clear to auscultation bilaterally and no wheezes Cardio Rate: regular rate Rhythm: regular rhythm Heart sounds: S1 normal heart sound present and S2 normal heart sound present GI Palpation (GI): Soft to palpation and nontender Auscultation: normal bowel sounds Skin General skin exam: rashes and/or lesions noted Neuro General: oriented to person, oriented to place and oriented to time Motor exam (neuro): Abnormal motor strength present (3/5 hand compliance representative bilateral) Assessment & Plan Assessment & Plan (1) Asthma: Code(s): J45.909 - Unspecified asthma, uncomplicated Category: Medical Qualifiers: Asthma complication type: uncomplicated Asthma persistence: persistent Asthma severity: moderate Qualified Code(s): J45.40 - Moderate persistent asthma, uncomplicated (2) JACY on CPAP: Code(s): G47.33 - Obstructive sleep apnea (adult) (pediatric); Z99.89 - Dependence on other enabling machines and devices Category: Medical (3) Pulmonary nodules: Comment: Low-dose CT scan scheduled for January 2020. her last CT scan demonstrated subcentimeter pulmonary nodules in addition to bilateral atelectasis/ scarring Code(s): R91.8 - Other nonspecific abnormal finding of lung field Category: Medical (4) Right leg swelling: Code(s): M79.89 - Other specified soft tissue disorders Category: Medical Plan Continue respiratory dtherapy: Symbicort twice a day short-acting beta agonist as needed Continue CPAP therapy, provided N30i, Provided chin strap. Adjusted APAP LDCT 06/2024 Follow-up in 6-12 months Coding Level of Care Code Est Pt Level 4 (55024) Diagnoses Moderate persistent asthma without complication J45.40 Asthma complication type: uncomplicated Asthma persistence: persistent Asthma severity: moderate JACY on CPAP G47.33; Z99.89 Pulmonary nodules R91.8 Right leg swelling M79.89 Time Spent (min) 16
[2024-04-06 09:45] VITALS: BP 130/76; PULSE 72; O2SAT 96; BMI 36.9
--- OUTSIDE RECORDS SUMMARY | 2024-04-06 10:13 | XMS_ITS | Clinical Summary ---
Author Organization [facility] Address [address] [place] [address] Care Team Providers Care Gas Appliance Repairer Name Role Phone Unavailable Primary Care Provider Unavailabl e Medications valACYclovir (VALTREX) 500 mg tabletIndication s:Herpesviral infection of urogenital system, unspecified TAKE 1 TABLET BY MOUTH EVERY DAY 90 tablet 1 10/01/2019 Active Social History Tobacco Use Types Packs/Day Years Used Date Smoking Tobacco: Never Assessed Comments Unknown Sex and Gender Information Value Date Recorded Sex Assigned at Not on file Legal Sex Female 5:27 PM EST Gender Identity Not on file Sexual Orientation Not on file Plan of Treatment Health Maintenance Due Date Last Done Comments CT Colonography 1959 Colonoscopy 1959 Colorectal Cancer Screening 1959 FIT-DNA 1959 FIT 1959 FOBT 1959 Mammogram 1959 Sigmoidoscopy 1959 Annual Physical Exam 12/15/1977 Tdap and Td Vaccines Adult 12/15/1978 Pap Smear 12/15/1980 Cervical Cancer Screening 12/15/1989 HPV/Cotest 12/15/1989 Pneumococcal Vaccine: 50+ Ye ars (1 of 1 - PCV) 12/15/2009 Zoster Vaccines (1 of 2) 12/15/2009 COVID-19 Vaccine ( - 2023-2 5 season) 2023 Influenza Vaccine (#1) 2023 RSV 60+ (1 - 1-dose 75+ series) 12/15/2034 HIB Vaccines Aged Out No longer eligi ble based on patient's age to complete this topic HPV Vaccines Aged Out No longer eligi ble based on patient's age to complete this topic Hepatitis A Vaccines Aged Out No long er eligible based on patient's age to complete this topic IPV Vaccines Aged Out No longer eligi ble based on patient's age to complete this topic Meningococcal Vaccine Aged Out No rosa nida eligible based on patient's age to complete this topic RSV <20 Months Aged Out No longer malcom faria based on patient's age to complete this topic
--- OUTSIDE RECORDS SUMMARY | 2024-04-06 10:13 | XMS_ITS | Continuity of Care Document ---
Author Organization [facility] Address [address] [place] [address]- Care Team Providers Care Lead Android Developer Name Role Phone Adele CANNON, Laine Primary Care Physician Encounter [facility] Date(s): 03/02/24 - 04/01/24 [facility] [address] [place] [id number]- Attending Physician: Admtr, Ar8 Admitting Physician: Admtr, Ar8 Referring Physician: Admtr, Ar8 Encounter Type: Triage Allergies, Adverse Reactions, Alerts Substance Criticality Severity Reaction Reaction Severity Status tetracycline stomach bleeding Active morphine tongue swelling Acti ve Fluvirin eye redness/blurry A ctive Shingrix adivce not to t 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 Refills 5, Soft Stop, 09/15/23 3:05:00 PM EDT, Aerosol, Route to Pharmacy Electronically, [id number], [facility]/pharmacy #[id number], 159, cm, 09/15/23 14:41:00 EDT, Height, 94.8, kg, 03/14/22 10:22:00 EST, Dry Weight Start Date: 09/15/23 Status: Ordered Quantity: 8.5 Unit: g Repeat number: 6 albuterol inhaler (OP) 0 Refills, Maintenance Start Date: 04/26/19 Status: Ordered Repeat number: 1 Breo Ellipta 100 mcg-25 mcg/inh inhalation powder 1 puffs, Inhalation, Daily, # 30 each, 5 Refills, Maintenance, 04/23/23 9:48:00 AM EST, Powder, [facility]/pharmacy #[id number], NO SUBSTITUTIONS, 1 puffs Inhalation Daily, 159, cm, 11/26/22 9:43:00 EDT, Height, 94.8, kg, 03/14/22 10:22:00 EST, Dry Weight Start Date: 04/23/23 Status: Ordered Quantity: 30.0 Unit: each Repeat number: 6 duloxetine 20 mg oral enteric coated capsule 1 capsule, By Mouth, 2 times a day, # 180 capsule, 1 Refills, Maintenance, 02/20/24 1:48:00 PM EST,[facility] STORE [id number], 159, cm, 10/14/23 11:29:00 EDT, Height, 94.8, kg, 03/14/22 10:22:00 EST, Dry Weight Start Date: 02/20/24 Status: Ordered Quantity: 180.0 Unit: capsule Repeat number: 1 hydrochlorothiazide 25 mg oral tablet 1, tablet, By Mouth, Daily, # 90 tablet, Refills 3, Tot. Refills 3, Maintenance, 09/15/23 3:04:00 PMEDT, Route to Pharmacy Electronically, [facility]/pharmacy #[id number], 159, cm, 09/15/23 14:41:00 EDT, Height, 94.8, kg, 03/14/22 10:22:00 EST, Dry Weight Start Date: 09/15/23 Status: Ordered Quantity: 90.0 Unit: tablet Repeat number: 4 LORazepam 1 mg oral tablet See Instructions, TAKE 1 TABLET BY MOUTH TWICE A DAY NEEDED FOR ANXIETY MAY TAKE LESS, # 30 tablet, 0 Refills, Maintenance, 12/22/23 4:04:00 PM EDT, [facility]/pharmacy #[id number], 159, cm, 10/14/23 11:29:00 EDT, Height, 94.8, kg, 03/14/22 10:22:00 EST, Dry Weight Start Date: 12/22/23 Stop Date: 12/21/24 Status: Ordered Quantity: 30.0 Unit: tablet Repeat number: 1 LORazepam 1 mg oral tablet 1 tablet = 1 mg, By Mouth, 2 times a day, PRN as needed for anxiety, may take less and should last her for 5 mos to 6 mos, # 30 tablet, 0 Refills, Maintenance, 11/26/22 10:10:00 AM EDT, Tablet, [facility]/pharmacy #[id number], Partial fill upon patient request if the prescription is for a schedule II opioid drug., 159, cm, 11/26/22 9:43:00 EDT, Height, 94.8, kg, 03/14/22 10:22:00 EST, Dry Weight Start Date: 11/26/22 Status: Ordered Quantity: 30.0 Unit: tablet Repeat number: 1 omeprazole 20 mg oral enteric coated capsule 1 capsule, By Mouth, Daily, # 90 capsule, 1 Refills, Maintenance, 10/02/23 11:55:00 AM EDT, [facility] [id number], 159, cm, 09/15/23 14:41:00 EDT, Height, 94.8, kg, 03/14/22 10:22:00 EST, Dry Weight Start Date: 10/02/23 Status: Ordered Quantity: 90.0 Unit: capsule Repeat number: 1 Symbicort 160mcg/4.5mcg Inhaler 2, puffs, Inhalation, 2 times a day, # 6 Gm, Refills 5, Tot. Refills 5, Maintenance, 11/26/22 10:14:00 AM EDT, Aerosol, Route to Pharmacy Electronically, [id number], [facility]/pharmacy #[id number], 159, cm, 11/26/22 9:43:00 EDT, Height, 94.8, kg, 03/14/22 10:22:00 EST, Dry Weight Start Date: 11/26/22 Status: Ordered Quantity: 6.0 Unit: g Repeat number: 6 Problem List Condition Confirmation Course Effective Dates Status Health St atus Informant Anxiety Confirmed Active Central pain syndrome Confirmed Active CPAP (continuous positive airway pressure) dependence Confirmed Active Depression Confirmed Active Limitation due to disability 1 Confirmed Active Drug or alcohol risk assessment 2 Confirmed Active Genital herpes 3 Confirmed Active History of medical problems 4 Confirmed Active LBP - Low back pain Confirmed Active Alcohol abuse, daily use Confirmed Active Severe obesity (BMI 35.0-39.9) with comorbidity Confirmed Active 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 Sex Female Sex Representation Female (finding) Patient Care team information Care Team Personnel Name: Laine Angulo MD Position: [facility] Physician - Primary Care Member Role: PCP Address: [address] [place] [address] [place] [address]- Telecom: Name: Kaushal CANNON, Tha Weldon Position: [facility] ICE GUARD INSPECTOR Member Role: Lifetime ICE GUARD INSPECTOR Physician Address: [address] [place] [address]'s [facility] [place] [address]- Telecom: Name: Reema Francis RN Position: [facility] RN Member Role: Primary Care Nurse Care Team Related Persons Name: GRADY RUSH Name: NEETA GAMING Insurance Providers Guarantor name: ALMA ETHAN Health Plan Information #: 1 Payer: MEDICARE PART B OUTPT Member Number: NA Policy Number: NA Group Number: NA Health Plan Information #: 2 Payer: [place] Member Number: NA Policy Number: NA Group Number: NA
--- OUTSIDE RECORDS SUMMARY | 2024-04-06 10:13 | XMS_ITS | Data Portability ---
Author Organization [place] - [facility], Allergy Address [address] [address] Care Team Providers Care Pick Up Worker Name Role Phone DEBBIE MARIE Primary Care Provider [phone] Assessment Encounter Date Assessment Date Assessment LastModified by Organization Details LastModified Time 09/17/2023 09/17/2023 Examination toda y revealed small ear canals and extensive impactions of squamous debris and cerumen. Ears were debrided bilaterally today. Recommend a course of clotrimazole drops to both ears twice daily. She will return in two months for an ear cleaning. [email or web address] Not available 09/17/2023 10:40:57 11/25/2023 11/25/2023 Impacted cerumen and squamous debris were removed bilaterally. There is dry flaky skin of the canal meatus. Recommend another course of clotrimazole drops along with Lotrisone cream. After that, suggest 1-2 drops of mineral or olive oil to help moisturize the skin of the canal and keep cerumen soft. Follow up in two months. [email or web address] Not available 11/25/2023 09:57:03 01/26/2024 01/26/2024 Impacted cerumen and squamous debris were removed bilaterally. Middle ear space is well aerated. I did check a [place] today which was negative for nystagmus. She has been having some difficulties with her blood pressure and thinks some of her lightheadedness may be related to this. I encouraged her to contact the office if the positional dizziness continues and we can refer her to vestibular therapy. She will try the mineral or olive oil drops and follow up in two months with ECHO Dotson for an ear cleaning. [email or web address] Not available 01/26/2024 10:13:35 03/30/2024 03/30/2024 63 year old morgan richardson presents for ear cleaning. Ears were meticulously cleaned bilaterally today with fine pics. Patient is encouraged to avoid Q-tips in her ears relative to packing the wax in tighter. She will follow up in 2-3 months for ear cleaning. [email or web address] Not available 03/30/2024 10:40:35 Plan of Treatment Reminders Order Date Submit Date Provider Last Modified By Organization Details Last Modified Time Details Appointments Establish ed 15 2024 09:00A M NEETA GUZMAN PA-C Not available Not available Not available Lab None recorded. Referral None recorded. Procedures None recorded. Surgeries None recorded. Imaging None recorded. Medication Orders clotrimaz ole 1 % topical solution 2023 [facility] #[id number], [address] [place], [address], 09/17/2023 10:41:27 clotrimaz ole 1 % topical solution 2023 024 [facility] #[id number], [address] [place], [address], 11/25/2023 09:57:38 clotrimaz ole-betam ethasone 1 %-0.05 % topical cream 2023 024 [facility] #[id number], [address] [place], [address], 11/25/2023 09:57:38 Patient TargetsNo targets recorded. Patient InstructionsNo instructions recorded. Reason for Referral None Reported. Results Created Date Observation Date Name Description Value Unit Range Abnormal Flag Note LastModifiedBy Organization Detail LastModifiedTime 10/22/1902/25/2019 imagi ng/di agnos tic resul t No observ ation record ed. [email or web address] Not Available 03:38:03 10/22/1902/25/2019 imagi ng/di agnos tic resul t No observ ation record ed. [email or web address] Not Available 03:38:09 Result Notes None recorded. Problems Name Problem SNOMED Code Status Onset Date Resolution Date Notes Provider Name and Address Organization Details Recorded Time Impacted cerumen of bilateral ears 44394746289 18650 Active 2022 Impacted cerumen, bilateral ; Note: Date Diagnosed : 10/21/2022 11:50 AM (H61.23) Impacte d cerumen, bilateral ; Note: Date Diagnosed : 5 1:28 PM (H61.23) ; Start Date : [address] [facility] 4 03:02:18 Superfici al mycosis 177879677 Active 2021 Other specified superfici al mycoses; Note: Date Diagnosed : 2 10:11 AM (B36.8) Not Available [facility] 4 03:02:15 Impacted cerumen 06622988 Active 2014 Impacted cerumen; Note: Date Diagnosed : 05/26/2014 2:12 PM (380.4) Not Available [facility] 4 03:02:15 Headache 64436056 Active 2018 Headache; Note: Date Diagnosed : 03/05/2018 9:03 AM (R51) Not Available [facility] 4 03:02:17 Allergic rhinitis 91052429 Active 2014 Allergic rhinitis, unspecifi ed; Note: Date Diagnosed : 5 1:32 PM (J30.9) Not Available [facility] 4 03:02:16 Obstructi ve sleep apnea syndrome 66385292 Active 2014 Obstructi ve sleep apnea (adult) (pediatri c); Note: Date Diagnosed : 05/26/2014 2:12 PM (327.23) ; Start Date : 5 Obstruc tive sleep apnea (adult) (pediatri c); Note: Date Diagnosed : 5 1:28 PM (G47.33) Not Available 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 4 03:02:17 Bleeding from nose 151097968 Active 2015 Epistaxis ; Note: Date Diagnosed : 07/17/2015 9:07 AM (R04.0) Not Available [facility] 4 03:02:17 Dysphonia 67037142 Active 2018 Hoarsenes s; Note: Date Diagnosed : 9 10:26 AM (R49.0) Not Available [facility] 4 03:02:16 Laryngeal spasm 273095437 Active 2018 Laryngeal spasm; Note: Date Diagnosed : 01/06/2019 10:21 AM (J38.5) Not Available [facility] 4 03:02:16 Simple obesity 770377794 Active 2018 Other obesity due to excess calories; Note: Date Diagnosed : 07/08/2018 11:18 AM (E66.09) Not Available [facility] 4 03:02:15 Bilateral disorder of Eustachia n tubes 62686832300 51412 Active 2017 Other specified disorders of Eustachia n tube, bilateral ; Note: Date Diagnosed : 07/07/2017 9:38 AM (H69.83) Not Available [facility] 4 03:02:16 Chronic mycotic otitis externa 917462576 Active 2023 ELIA IRVING PA-C [address] [facility], [place], [address] , [facility] - [facility] 4 10:40:11 Seborrhei c dermatiti s 92807530 Active 2023 Seborrhei c dermatiti s, unspecifi ed; Note: Date Diagnosed : 06/19/2023 10:23 AM (L21.9) Not Available [facility] 4 03:02:17 Dizziness and giddiness 635684447 Active 2023 ELIA IRVING PA-C 100 [facility],[address], [place], [address] , [place] - [facility] 4 10:13:40 Problem Notes None recorded. Procedures Surgical History Date Name Laterality Status Provider Name and Address Organization Details Recorded Time 5 Cerumen removal without microscope bilat completed NEETA GUZMAN PA-C [address] [place] [address],[place] [address], [place], [address], [place] - [facility] 03/30/2024 10:39:44 Imaging Results Imaging Date Name Status LastModified by Organiz ation Details LastModified Time 02/25/2019 imaging/diag nostic result completed Information not available 10/22/2023 03:38:03 02/25/2019 imaging/diag nostic result completed Information not available 10/22/2023 03:38:09 Procedure Notes None recorded. Medical Equipment None Reported. Allergies Allergen ID Allergen Name Allergen Category Reaction Reaction Severity Criticality Documentation Date Start Date Code Code System Note Provider Name and Address Organization Details Recorded Time 643672 Product containin g tetracycl ine and antibioti c (product) medicatio n other Not available Not available 07/15/2023 63940 1004 SNOMED React ion: unkno wn, unspe cifie d;; Not Available [facility] 4 01:17:25 920232 morphine medicatio n other Not available Not available 07/15/2023 7052 RxNorm React ion: unkno wn, unspe cifie d;; Not Available [facility] 4 01:17:26 Medications Name Sig Start Date Stop Date Status Note LastModified by Organization Details LastModified Time ipratropi um 0.5 mg-albute rol 3 mg (2.5 mg base)/3 mL nebulizat ion soln USE 1 VIAL INHALED VIA NEBULIZE R EVERY 6 HOURS NEEDED FOR WHEEZING *MED B QUESTION S* active Not Available Not Available No t Available albuterol sulfate 2.5 mg/3 mL (0.083 %) solution for nebulizat ion 11/15 completed Medicati on ID: [id number] D uration Value: 15 Brand Name: albutero l sulfate Send Method: E-Prescr ibed Sub s Allowed: subs OK Speci al Instruct ion: TAKE 1 VIAL BY NEBULIZA TION EVERY 4 HOURS NEEDED FOR WHEEZING FOR U P TO 30 DAYS. Me dication GenericN nathaly: albutero l sulfate Not Available Not Available Not Available azithromy tang 250 mg tablet TAKE 2 TABLETS BY MOUTH TODAY, THEN TAKE 1 TABLET DAILY FOR 4 DAYS DIRECTED active Not Available Not Available No t Available CombiPatc h 0.05 mg-0.14 mg/24 hr transderm al 11/05 completed Medicati on ID: [id number] D uration Value: 28 Reason: () Brand Name: CombiPat ch Send Method: E-Prescr ibed Sub s Allowed: subs OK Speci al Instruct ion: APPLY 1 PATCH BY TRANSDER LUCIANA TWICE WEEKLY FOR 28 DAYS Med icationG enericNa me: CombiPat ch Not Available Not Available Not Available ibuprofen 800 mg tablet 07/16 completed Medicati on ID: [id number] Du ration Value: 30 Reason: () Brand Name: ibuprofe n Send Method: E-Prescr ibed Sub s Allowed: subs OK Speci al Instruct ion: TAKE 1 TABLET BY MOUTH 3 TIMES A DAY WITH MEALS Me dication GenericN nathaly: ibuprofe n Not Available Not Available Not Available valacyclo vir 1 gram tablet 12/01 completed Medicati on ID: [id number] D uration Value: 30 Brand Name: valacycl ovir Sen d Method: E-Prescr ibed Sub s Allowed: subs OK Speci al Instruct ion: TAKE 1 TABLET (1,000 MG) BY ORAL ROUTE ONCE DAILY FOR 30 DAYS Med icationG enericNa me: valacycl ovir Not Available Not Available Not Available fluocinon gayatri 0.05 % topical gel PLEASE SEE ATTACHED FOR DETAILED DIRECTIO NS active Not Available Not Available No t Available prednison e 20 mg tablet TAKE 2 TABLETS BY MOUTH DAILY active Not Available Not Available No t Available fluoroura cil 5 % topical cream 11/15 completed Medicati on ID: [id number] B rand Name: fluorour acil Sen d Method: E-Prescr ibed Sub s Allowed: subs OK Medic ationGen ericName : fluorour acil Not Available Not Available Not Available valacyclo vir 500 mg tablet TAKE 1 TABLET BY MOUTH TWICE A DAY active Not Available Not Available No t Available doxycycli ne monohydra te 100 mg tablet TAKE 1 TABLET BY MOUTH TWICE A DAY FOR 14 DAYS active Not Available Not Available No t Available tramadol 50 mg tablet 01/22 completed Medicati on ID: [id number] B rand Name: tramadol Send Method: E-Prescr ibed Sub s Allowed: subs OK Speci al Instruct ion: TAKE 12 TABLET BY MOUTH EVERY 6 HOURS NEEDED FOR PAIN WITH 500 MG ACETAMIN OPHEN Me dication GenericN nathaly: tramadol Not Available Not Available Not Available oxycodone -acetamin ophen 5 mg-325 mg tablet TAKE 1 TABLET BY MOUTH EVERY 4 (FOUR) HOURS NEEDED FOR PAIN active Not Available Not Available No t Available Multi-Vit johnson HP/Minera ls capsule 2015 active Medicati on ID: [id number] B rand Name: Multi-Vi tamin HP/[place] als Send Method: E-Prescr ibed Sub s Allowed: subs OK Medic ationGen ericName : Multi-Vi tamin HP/[place] als Not Available Not Available Not Available baclofen 10 mg tablet TAKE 0.5 TABLETS BY MOUTH 3 TIMES A DAY. active Not Available Not Available No t Available clotrimaz ole-betam ethasone 1 %-0.05 % topical cream PLEASE SEE ATTACHED FOR DETAILED DIRECTIO NS active Not Available Not Available No t Available metronida zole 0.75 % topical cream PLEASE SEE ATTACHED FOR DETAILED DIRECTIO NS active Not Available Not Available No t Available minocycli ne 50 mg capsule TAKE 1 CAPSULE BY MOUTH EVERY DAY active Not Available Not Available No t Available clotrimaz ole 1 % topical solution 4 drops to both ears twice daily x 2 weeks active Not Available Not Available No t Available gabapenti n 300 mg capsule 11/15 completed Medicati on ID: [id number] D uration Value: 90 Brand Name: gabapent in Send Method: E-Prescr ibed Sub s Allowed: subs OK Speci al Instruct ion: TAKE 1 CAPSULE BY MOUTH TWICE A DAY Medi cationGe nericNam e: gabapent in Not Available Not Available Not Available omeprazol e 20 mg capsule,d elayed release TAKE 1 CAPSULE BY MOUTH EVERY DAY active Not Available Not Available No t Available montel[address] st 10 mg tablet 11/05 completed Medicati on ID: [id number] D uration Value: 90 Reason: () Brand Name: monteluk ast Send Method: E-Prescr ibed Sub s Allowed: subs KOLBY Sibley al Instruct ion: TAKE 1 TABLET BY MOUTH EVERY DAY AT BEDTIME Medicati onGeneri cName: monteluk ast Not Available Not Available Not Available codeine 10 mg-guaife nesin 100 mg/5 mL oral liquid TAKE 10 ML ORALLY EVERY 6 HOURS NEEDED FOR COUGH FOR 10 DAYS active Not Available Not Available No t Available hydrochlo rothiazid e 25 mg tablet TAKE 1 TABLET BY MOUTH EVERY DAY active Not Available Not Available No t Available nystatin 100,000 unit/gram topical powder APPLY TO THE AFFECTED AREA(S) BY TOPICAL ROUTE 2 TIMES PER DAY FOR 15 DAYS active Not Available Not Available No t Available lorazepam 1 mg tablet TAKE 1 TABLET BY MOUTH TWICE A DAY NEEDED FOR ANXIETY MAY TAKE LESS active Not Available Not Available No t Available albuterol sulfate HFA 90 mcg/actua tion aerosol inhaler TAKE 2 PUFFS BY MOUTH EVERY 6 HOURS NEEDED FOR WHEEZE active Not Available Not Available No t Available fluticaso ne propionat e 50 mcg/actua tion nasal spray,bertram pension 07/16 completed Medicati on ID: [id number] Du ration Value: 30 Reason: () Brand Name: fluticas one Send Method: E-Prescr ibed Sub s Allowed: subs KOLBY Sibley al Instruct ion: USE 2 SPRAYS IN EACH NOSTRIL ONCE A DAY Medi cationGe nericNam e: fluticas one Not Available Not Available Not Available neomycin 3.5 mg/g-poly myxin B 10,000 unit/g-de xameth 0.1 % eye oint 01/22 completed Medicati on ID: [id number] B rand Name: neomycin -polymyx in B-dexame th Send Method: E-Prescr ibed Sub s Allowed: subs KOLBY Sibley al Instruct ion: APPLY AT BEDTIME INTO BOTH EYES Med icationG enericNa me: neomycin -polymyx in B-dexame th Not Available Not Available Not Available clonazepa m 0.25 mg disintegr ating tablet 01/30 completed Medicati on ID: [id number] Du ration Value: 30 Reason: () Brand Name: clonazep am Send Method: E-Prescr ibed Sub s Allowed: subs OK Speci al Instruct ion: PLACE 1 TABLET AT BEDTIME X 1 WEEK THEN INCREASE TO TWICE DAILY Me dication GenericN nathaly: clonazep am Not Available Not Available Not Available rosuvasta tin 20 mg tablet TAKE 1 TABLET BY MOUTH EVERY DAY active Not Available Not Available No t Available duloxetin e 20 mg capsule,d elayed release TAKE 1 CAPSULE BY MOUTH TWICE A DAY active Not Available Not Available No t Available duloxetin e 60 mg capsule,d elayed release 11/15 completed Medicati on ID: [id number] D uration Value: 90 Brand Name: duloxeti ne Send Method: E-Prescr ibed Sub s Allowed: subs OK Speci al Instruct ion: TAKE 1 CAPSULE BY MOUTH EVERY DAY Medi cationGe nericNam e: duloxeti ne Not Available Not Available Not Available Advair HFA 115 mcg-21 mcg/actua tion aerosol inhaler INHALE 2 PUFFS EVERY 12 HOURS active Not Available Not Available No t Available DermOtic Oil 0.01 % ear drops 5 drop 11/05 completed Medicati on ID: [id number] P rescribe d By Name: Barry Gomez MD Brand Name: DermOtic Oil Send Method: E-Prescr ibed Sub s Allowed: subs OK Medic ationGen ericName : DermOtic Oil Not Available Not Available Not Available hydrochlo rothiazid e 12.5 mg tablet 01/22 completed Medicati on ID: [id number] B rand Name: hydrochl orothiaz gayatri Send Method: E-Prescr ibed Sub s Allowed: subs OK Speci al Instruct ion: TAKE 2 TABLETS BY MOUTH EVERY MORNING Medicati onGeneri cName: hydrochl orothiaz gayatri Not Available Not Available Not Available Symbicort 80 mcg-4.5 mcg/actua tion HFA aerosol inhaler 07/08 completed Medicati on ID: [id number] R kentrell: () Brand Name: Symbicor t Send Method: E-Prescr ibed Sub s Allowed: subs OK Medic ationGen ericName : Symbicor t Not Available Not Available Not Available budesonid e-formote rol HFA 160 mcg-4.5 mcg/actua tion aerosol inhaler INHALE 2 PUFFS TWICE A DAY active Not Available Not Available No t Available cholecalc iferol (vitamin D3) 1,250 mcg (50,000 unit) capsule 11/05 completed Medicati on ID: [id number] D uration Value: 56 Reason: () Brand Name: cholecal ciferol (vitamin D3) Send Method: E-Prescr ibed Sub s Allowed: subs OK Speci al Instruct ion: 1 CAPSULE ONCE WEEKLY ORALLY 56 DAYS Med ication enericNa me: cholecal ciferol (vitamin D3) Not Available Not Available Not Available armodafin il 150 mg tablet TAKE 1 TABLET BY MOUTH EVERY DAY IN THE MORNING active Not Available Not Available No t Available Breo Ellipta 100 mcg-25 mcg/dose powder for inhalatio n INHALE 1 PUFF BY MOUTH DAILY active Not Available Not Available No t Available Wegovy 0.25 mg/0.5 mL subcutane ous pen injector INJECT 0.5 ML (0.25 MG TOTAL) UNDER THE SKIN EVERY 7 DAYS active Not Available Not Available No t Available Vitals Date Recorded Body height Body mass index (BMI) Body weight Provider Name and Address Organization Details Last Updated DateTime 09/17/2023 160.02 cm 38.3 kg/m2 27329.95 g Kanika Hood [place] [facility] 09/17/2023 09:53:13 Date Recorded Body height Body mass index (BMI) Body weight Provider Name and Address Organization Details Last Updated DateTime 11/25/2023 160.02 cm 38.3 kg/m2 09643.95 g Reshma Norton [place] [facility] 11/25/2023 09:32:29 Date Recorded Body height Body mass index (BMI) Body weight Provider Name and Address Organization Details Last Updated DateTime 01/26/2024 160.02 cm 38.3 kg/m2 34863.95 g Reshma Norton [place] [facility] 01/26/2024 09:35:06 Date Recorded Body height Body mass index (BMI) Body weight Provider Name and Address Organization Details Last Updated DateTime 03/30/2024 160.02 cm 35.3 kg/m2 98428.88 g Aylin Baker [place] [facility] 03/30/2024 10:03:07 Social History None recorded. Functional Status None recorded. Mental Status None recorded. Family History Nothing Reported. Medical History No medical history recorded. Gynecological HistoryNo gynecological history recorded. Obstetrics History GPAL:G 0 P 0 0 0 0 Past Encounters Encounter ID Performer Location Encounter Start Date Encounter Closed Date Diagnosis/Indication Diagnosis SNOMED-CT Code Diagnosis ICD10 Code Diagnosis Note [id number] ELIA IRVING PA-C [facility] on [address] [place] [phone] 09/17/2023 09:47:19 09/17/2023 10:14:39 Chronic mycotic otitis externa 120059122 H60.399 Impacted c erumen of bilateral ears 8789743542 208765 H61.23 [id number] ELZBIETA ARSHAD MD [facility] on [address] [place] [phone] 11/25/2023 09:24:31 11/25/2023 09:51:39 Chronic mycotic otitis externa 335001300 H60.399 Impacted c erumen of bilateral ears 7661194406 970999 H61.23 [id number] MARYBEL HUTTON MD [facility] on [address] [place] [phone] 01/26/2024 09:33:26 01/26/2024 10:07:39 Impacted cerumen of bilateral ears 7242257880 358026 H61.23 Dizziness and giddiness 365338552 R42 [id number] ELZBIETA ARSHAD MD [facility] on [address] [place] [address] [id number] 2 03/30/2024 09:59:22 03/30/2024 10:39:36 Impacted cerumen of bilateral ears 7619837011 980139 H61.23 Health Concerns Section Related Observation LastModified by Organization Detai ls LastModified Time None Recorded Concern Status LastModified by Organization Details LastModified Time None Recorded Advance Directives Directive None Recorded Payers Encounter Date Sequence Insurance Name Policy Number Policy West Covered Member ID West Member ID Guarantor Name 09/17/2023 1 [place] [employer] Annemarie Pedrazaclotildechloé [id number] Annemarie Riceytkibradaudelia 09/17/2023 2 [place] Annemarie Ricesusiechloé [id number] Annemarie Riceytclotildechloé 11/25/2023 1 [place] [facility] Annemarie Kat Krystalytclotildechloé [id number] Annemarie Riceytkibradaudelia 11/25/2023 2 [place] Annemarie Ricesusiechloé [id number] Annemarie Pedrazakichloé 01/26/2024 1 MEDICARE B-[place]: [facility] Annemarie Kat Krystalytclotildechloé [id number] Annemarie Zytkibradaudelia 01/26/2024 2 [place] Annemarie Riceytkichloé [id number] Annemarie Riceytkichloé 03/30/2024 1 MEDICARE B-[place]: [facility] Annemarie Kat Krystalytkaiaaudelia [id number] Annemarie Riceytkibradaudelia 03/30/2024 2 [facility]emarie Riceytmode [id number] Annemarie Riceytmode Notes Date Note Type Note Provider Name and Address Organization Details Recorded Time 09/17/2023 text/html 62 year old morgan richardson with a history of narrow ear canals and a tendency for cerumen and squamous debris impaction.Here today for ear blockage and itching. There is some pain on the left. ELIA IRVING PA-C [address] [place] [address], [phone], [facility] 09/17/2023 10:41:44 11/25/2023 text/html 62 year old morgan richardson presents today for an ear cleaning.She was last seen two months ago at which time exam was suggestive of chronic fungal otitis externa. She was prescribed topical clotrimazole drops. She does feel it helped for a short time, but then ears became blocked and she has had itching. ELZBIETA ARSHAD MD [address] [place] [address], [phone], [facility] 11/25/2023 10:11:46 01/26/2024 text/html 62 year old morgan richardson presents today for an ear cleaning.History of small ear canals, chronic fungal OE and rapid debris accumulation.No specific concerns regarding the ears today. She did forget the mineral or olive oil drops.She has had some positional dizziness since the summer time. Reports a history of this in the past. Episodes seem to be quick sensations of movement with rapid head position changes. Also some lightheadedness. MARYBEL HUTTON MD [address] [place] [address], [phone], [facility] - [facility] 01/26/2024 19:44:41 03/30/2024 text/html 63 year old morgan richardson presents for ear cleaning. No acute concerns. ELZBIETA ARSHAD MD [address] [place] [address],[place] [address], [place], [phone], [facility] - [facility] 03/31/2024 07:23:22 OBGyn Episode No OBEpisode recorded.
--- OUTSIDE RECORDS SUMMARY | 2024-04-06 10:13 | XMS_ITS | Continuity of Care Document ---
Author Organization [place] - [facility], [facility] Address [address] [place] [address] Care Team Providers Care Logging Specialist Name Role Phone DEBBIE MARIE Primary Care Provider Assessment Encounter Date Assessment Date Assessment LastModified by Organization Details LastModified Time 03/30/2024 03/30/2024 63 year old female presents for ear cleaning. Ears were meticulously [...] None recorded. Imaging None recorded. Medication Orders None recorded. Patient TargetsNo targets recorded. Patient InstructionsNo instructions recorded. Reason for Referral None Reported. Problems Name Problem SNOMED Code Status Onset Date Resolution Date Notes Provider Name and Address Organization Details Recorded Time Impacted cerumen of bilateral ears 55385336938 20271 Active 2022 Impacted cerumen, bilateral ; Note: Date Diagnosed : 10/21/2022 11:50 AM (H61.23) Impacte d cerumen, bilateral ; Note: Date Diagnosed : 5 1:28 PM (H61.23) ; Start Date : 5 Not Available [facility] 4 03:02:18 Superfici al mycosis 801466005 Active 2021 Other specified superfici al mycoses; Note: Date Diagnosed : 2 10:11 AM (B36.8) Not Available [facility] 4 03:02:15 Impacted cerumen 56889323 Active 2014 Impacted cerumen; Note: Date Diagnosed : 05/26/2014 2:12 PM (380.4) Not Available [facility] 4 03:02:15 Headache 94647921 Active 2018 Headache; Note: Date Diagnosed : 03/05/2018 9:03 AM (R51) Not Available [facility] 4 03:02:17 Allergic rhinitis 55538103 Active 2014 Allergic rhinitis, unspecifi ed; Note: Date Diagnosed : 5 1:32 PM (J30.9) Not Available [facility] 4 03:02:16 Obstructi ve sleep apnea syndrome 20155446 Active 2014 Obstructi ve sleep apnea (adult) (pediatri c); Note: Date Diagnosed : 05/26/2014 2:12 PM (327.23) ; Start Date : 5 Obstruc tive sleep apnea (adult) (pediatri c); Note: Date Diagnosed : 5 1:28 PM (G47.33) Not Available [facility] 4 03:02:18 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 38934403828 29251 Active 2021 Other acquired stenosis of external ear canal, bilateral ; Note: Date Diagnosed : 2 10:17 AM (H61.393) Not Available [facility] 4 03:02:17 Bleeding from nose 177632664 Active 2015 Epistaxis ; Note: Date Diagnosed : 07/17/2015 9:07 AM (R04.0) Not Available [facility] 4 03:02:17 Dysphonia 27548377 Active 2018 Hoarsenes s; Note: Date Diagnosed : 9 10:26 AM (R49.0) Not Available [facility] 4 03:02:16 Laryngeal spasm 968580759 Active 2018 Laryngeal spasm; Note: Date Diagnosed : 01/06/2019 10:21 AM (J38.5) Not Available [facility] 4 03:02:16 Simple obesity 468872796 Active 2018 Other obesity due to excess calories; Note: Date Diagnosed : 07/08/2018 11:18 AM (E66.09) Not Available [facility] 4 03:02:15 Bilateral disorder of Eustachia n tubes 17053373007 57250 Active 2017 Other specified disorders of Eustachia n tube, bilateral ; Note: Date Diagnosed : 07/07/2017 9:38 AM (H69.83) Not Available [facility] 4 03:02:16 Chronic mycotic otitis externa 389392521 Active 2023 ELIA IRVING PA-C [address] [facility],[place] [address], [place], [address] , [facility] 4 10:40:11 Seborrhei c dermatiti s 20969547 Active 2023 Seborrhei c dermatiti s, unspecifi ed; Note: Date Diagnosed : 06/19/2023 10:23 AM (L21.9) Not Available [facility] 4 03:02:17 Dizziness and giddiness 872314679 Active 2023 ELIA IRVING PA-C [address] [place], [place] [address] [place] [address], [place], [address] , [facility] 4 10:13:40 Problem Notes None recorded. Procedures Surgical History Date Name Laterality Status Provider Name and Address Organization Details Recorded Time 5 Cerumen removal without microscope bilat completed NEETA GUZMAN PA-C [address] [employer],[facility], [place], [address], [facility] 03/30/2024 10:39:44 Imaging Results None recorded. Procedure Notes None recorded. Medical Equipment None Reported. Allergies Allergen ID Allergen Name Allergen Category Reaction Reaction Severity Criticality Documentation Date Start Date Code Code System Note Provider Name and Address Organization Details Recorded Time 620959 Product containin g tetracycl ine and antibioti c (product) medicatio n other Not available Not available 07/15/2023 13898 1004 SNOMED React ion: unkno wn, unspe cifie d;; Not Available [facility] 4 01:17:25 056519 morphine medicatio n other Not available Not available 07/15/2023 7052 RxNorm React ion: unkno wn, unspe cifie d;; Not Available [facility] 4 01:17:26 Medications Name Sig Start Date [...] nebulizat ion 11/15 completed Medicati on ID: [id number] D uration Value: 15 Brand Name: albutero [...] transderm al 11/05 completed Medicati on ID: [id number] D uration Value: 28 Reason: () Brand Name: CombiPat ch Send Method: E-Prescr ibed Sub s Allowed: subs OK Speci al Instruct ion: APPLY 1 PATCH BY TRANSDER LUCIANA TWICE WEEKLY FOR 28 DAYS Med icationG enericNa me: CombiPat ch Not Available Not Available Not Available ibuprofen 800 mg tablet 07/16 completed Medicati on ID: [id number] Du ration Value: 30 Reason: () Brand Name: ibuprofe n Send Method: E-Prescr ibed Sub s Allowed: subs OK Speci al Instruct ion: TAKE 1 TABLET BY MOUTH 3 TIMES A DAY WITH MEALS Me dication GenericN nathaly: ibuprofe n Not Available Not Available Not Available valacyclo vir 1 gram tablet 12/01 completed Medicati on ID: [id number] D uration Value: 30 Brand Name: valacycl [...] topical cream 11/15 completed Medicati on ID: [id number] B rand Name: fluorour acil Ferdinand d Method: E-Prescr ibed Sub s Allowed: [...] mg tablet 01/22 completed Medicati on ID: [id number] B rand Name: tramadol Send Method: E-Prescr [...] ls capsule 2015 active Medicati on ID: [id number] B rand Name: Multi-Vi tamin HP/Ret[employer] Interior [employer]er als Send Method: E-Prescr ibed Sub s Allowed: subs OK Medic ationGen ericName : Multi-Vi tamin HP/[employer]er als Not Available Not Available Not Available [...] mg capsule 11/15 completed Medicati on ID: [id number] D uration Value: 90 Brand Name: gabapent in Send Method: E-Prescr ibed Sub s Allowed: subs OK Speci al Instruct ion: TAKE 1 CAPSULE BY MOUTH TWICE A DAY Medi cation nericNam e: gabapent in Not Available Not Available Not Available omeprazol e 20 mg capsule,d elayed release TAKE 1 CAPSULE BY MOUTH EVERY DAY active Not Available Not Available No t Available mont[address] 10 mg tablet 11/05 completed Medicati on ID: [id number] D uration Value: 90 Reason: () Brand [...] propionat e 50 mcg/actua tion nasal spray,bertram ontiveroson 07/16 completed Medicati on ID: [id number] Du ration Value: 30 Reason: () Brand Name: fluticas one Send Method: E-Prescr ibed Sub s Allowed: subs OK Speci al Instruct ion: USE 2 SPRAYS IN EACH NOSTRIL ONCE A DAY Medi cationGe nericNam e: fluticas one Not Available Not Available Not Available neomycin 3.5 mg/g-poly myxin B 10,000 unit/g-de xameth 0.1 % eye oint 01/22 completed Medicati on ID: [id number] B rand Name: neomycin -polymyx in B-dexame Send Method: E-Prescr ibed Sub s Allowed: subs OK Speci al Instruct ion: APPLY AT BEDTIME INTO BOTH EYES Med icationG enericNa me: neomycin -polymyx in B-dexame Not Available Not Available Not Available clonazepa m 0.25 mg disintegr ating tablet 01/30 completed Medicati on ID: [id number] Du ration Value: 30 Reason: () Brand Name: clonazep am Send Method: E-Prescr ibed Sub s Allowed: subs OK Jannethi al Instruct ion: PLACE 1 TABLET AT [...] elayed release 11/15 completed Medicati on ID: [id number] D uration Value: 90 Brand Name: duloxeti [...] 5 drop 11/05 completed Medicati on ID: [id number] P rescribe d By Name: Barry Gomez MD Brand Name: DermOtic Oil Send Method: E-Prescr ibed Sub s Allowed: subs OK Medic ationGen ericName : DermOtic Oil Not Available Not Available Not Available hydrochlo rothiazid e 12.5 mg tablet 01/22 completed Medicati on ID: [id number] B rand Name: hydrochl orothiaz gayatri Send Method: E-Prescr ibed Sub s Allowed: subs OK Speci al Instruct ion: TAKE 2 TABLETS BY MOUTH EVERY MORNING Medicati onGeneri cName: hydrochl orothiaz gayatri Not Available Not Available Not Available Symbicort 80 mcg-4.5 mcg/actua tion HFA aerosol inhaler 07/08 completed Medicati on ID: [id number] R kentrell: () Brand Name: Symbicor t [...] unit) capsule 11/05 completed Medicati on ID: [id number] D uration Value: 56 Reason: () Brand Name: cholecal ciferol (vitamin D3) Send Method: E-Prescr ibed Sub s Allowed: subs OK Speci al Instruct ion: 1 CAPSULE ONCE WEEKLY ORALLY 56 DAYS Med icationG enericNa me: cholecal ciferol (vitamin D3) Not [...] Updated DateTime 03/30/2024 160.02 cm 35.3 kg/m2 68500.88 g Aylin Kayconstantino [place] - [facility] 03/30/2024 10:03:07 Social History None recorded. Functional Status None recorded. Mental Status None recorded. Family History Nothing Reported. Medical History No medical history recorded. Gynecological HistoryNo gynecological history recorded. Obstetrics History GPAL:G 0 P 0 0 0 0 Past Encounters Encounter ID Performer Location Encounter Start Date Encounter Closed Date Diagnosis/Indication Diagnosis SNOMED-CT Code Diagnosis ICD10 Code Diagnosis Note [id number] ELZBIETA ARSHAD MD [facility] on [address] [place] [address] 03/30/2024 09:59:22 03/30/2024 10:39:36 Impacted cerumen of bilateral ears [id number] 763651 H61.23 Health Concerns Section Related Observation LastModified by Organization Detai ls LastModified Time None Recorded Concern Status LastModified by Organization Details LastModified Time None Recorded Payers Encounter Date Sequence Insurance Name Policy Number Policy West Covered Member ID West Member ID Guarantor Name 03/30/2024 1 MEDICARE B-[place]: [employer] Annemarie Meneses [id number] Annemarie Meneses 03/30/2024 2 [place] [facility] Annemarie Meneses [id number] Annemarie Meneses Notes Date Note Type Note Provider Name and Address Organization Details Recorded Time 03/30/2024 text/html 63 year old female presents for ear cleaning. No acute concerns. ELZBIETA ARSHAD MD [address] [place] [address], [place], [address], [place] - [facility] 03/31/2024 07:23:22 OBGyn Episode No OBEpisode recorded.
--- OUTSIDE RECORDS SUMMARY | 2024-04-06 10:13 | XMS_ITS | Data Portability ---
Author Organization [facility] Address [address] [place] [address] Care Team Providers Care Chaser Tar Name Role Phone DEBBIE MARIE Primary Care Provider Assessment Encounter Date Assessment Date Assessment LastModified by Organization Details LastModified Time 11/26/2023 11/26/2023 Assessment: Bilateral carpal tunnel syndrome based on clinical exam today, may have some component of cubital tunnel syndrome and also double crush phenomenon because of the neck pain that she reports as well. Plan: Bilateral upper extremity EMG is ordered to confirm above diagnoses and assess severity thereof. She is provided with bilateral Velcro wrist splints and will start nighttime splinting consistently. We will discuss other treatment options after we have had a chance to review the EMG together. EMG results will guide next recommended steps in treatment. The patient is ambulatory, but has weakness and/or instability of their extremity which requires stabilization from this semi-rigid/rigid orthosis to improve their function. Verbal and written instructions for their use and application of this item were given. patient was instructed that should the brace result in increased pain, decreased sensation, increased swelling or an overall worsening of their medical condition, to please contact our office immediately. [email or web address] Not available 11/26/2023 10:34:29 02/04/2024 02/04/2024 Assessment: Bilateral carpal tunnel syndrome confirmed on recent electrodiagnostic study to be mild bilaterally, new diagnosis of the left wrist de Quervain's tenosynovitis. Plan: We have discussed the treatment options for each of these problems. She is responding favorably to the nighttime bracing and will continue to do so for treatment of bilateral mild carpal tunnel syndrome. She has elected to try a left wrist first dorsal compartment tendon sheath injection which is performed for the treatment of de Quervain's tenosynovitis. She is also provided today with a thumb spica splint. Follow-up as scheduled in a couple of months time but may be canceled if doing well. May elect to proceed with bilateral carpal tunnel injections. Understands that surgery will be a final treatment option for each of these problems if all conservative measures fail. jamila Not available 02/04/2024 10:20:01 Plan of Treatment Reminders Order Date Submit Date Provider Last Modified By Organization Details Last Modified Time Details Appointments RECHE CK 15 2024 09:00A M Sobeida julio MD Not available Not available Not available Lab None recor ded. Referral None recor ded. Procedures nerve condu ction study /EMG, upper extre mity (PROC ) - diag bilat eral carpa l tunne l syndr ome pleas e do emg [facility]vs bilat eral upper extre mitie s pleas e call pt with time and date 2023 024 leandra julio [facility]rology Scheduling, [address] [place], [address], 11/26/2023 10:35:06 Surgeries None recor ded. Imaging None recor ded. Medication Orders None recor ded. Patient TargetsNo targets recorded. Patient InstructionsNo instructions recorded. Reason for Referral None Reported. Results Created Date Observation Date Name Description Value Unit Range Abnormal Flag Note LastModifiedBy Organization Detail LastModifiedTime 01/16/2001/16/2024 physi padmaja thera py evalu ation * No observ ation record ed. [email or web address] [facility] Scheduling Dept [address] [place], [address], 01/19/2024 09:12:02 Result Notes None recorded. Procedures Surgical History Date Name Laterality Status Provider Name and Address Organization Details Recorded Time 02/04/20 24 JZCelestone Wrist Tendon Inj completed Sobeida Newman MD [address] [address], [place], [address], [facility] 02/04/2024 10:17:14 Imaging Results Imaging Date Name Status LastModified by Organiz ation Details LastModified Time 01/16/2024 physical therapy evaluation* completed [email or web address] [facility] Scheduling Dept [address] [facility], [place], [address], 01/19/2024 09:12:02 Procedure Notes None recorded. Medical Equipment None Reported. Allergies No known drug allergies Medications Name Sig Start Date Stop Date Status Note LastModified by Organization Details LastModified Time ipratropium 0.5 mg-albuterol 3 mg (2.5 mg base)/3 mL nebulization soln USE 1 VIAL INHALED VIA NEBULIZER EVERY 6 HOURS NEEDED FOR WHEEZING *MED B QUESTIONS* active Not Available Not Available N ot Available azithromycin 250 mg tablet TAKE 2 TABLETS BY MOUTH TODAY, THEN TAKE 1 TABLET DAILY FOR 4 DAYS DIRECTED active Not Available Not Available No t Available fluocinonide 0.05 % topical gel PLEASE SEE ATTACHED FOR DETAILED DIRECTIONS active Not Available Not Available N ot Available prednisone 20 mg tablet TAKE 2 TABLETS BY MOUTH DAILY active Not Available Not Available Not Available valacyclovir 500 mg tablet TAKE 1 TABLET BY MOUTH TWICE A DAY active Not Available Not Available No t Available doxycycline monohydrate 100 mg tablet TAKE 1 TABLET BY MOUTH TWICE A DAY FOR 14 DAYS active Not Available Not Available No t Available oxycodone-ac etaminophen 5 mg-325 mg tablet TAKE 1 TABLET BY MOUTH EVERY 4 (FOUR) HOURS NEEDED FOR PAIN active Not Available Not Available No t Available baclofen 10 mg tablet TAKE 0.5 TABLETS BY MOUTH 3 TIMES A DAY. active Not Available Not Available No t Available clotrimazole -betamethaso ne 1 %-0.05 % topical cream active Not Available Not Available Not Available metronidazol e 0.75 % topical cream PLEASE SEE ATTACHED FOR DETAILED DIRECTIONS active Not Available Not Available N ot Available minocycline 50 mg capsule TAKE 1 CAPSULE BY MOUTH EVERY DAY active Not Available Not Available No t Available clotrimazole 1 % topical solution PLACE 4 DROPS IN BOTH EARS TWICE A DAY FOR 2 WEEKS active Not Available Not Available Not Available omeprazole 20 mg capsule,annie yed release TAKE 1 CAPSULE BY MOUTH EVERY DAY active Not Available Not Available No t Available codeine 10 mg-guaifenes in 100 mg/5 mL oral liquid TAKE 10 ML ORALLY EVERY 6 HOURS NEEDED FOR COUGH FOR 10 DAYS active Not Available Not Available No t Available hydrochlorot hiazide 25 mg tablet TAKE 1 TABLET BY [...] No t Available albuterol sulfate HFA 90 mcg/actuatio n aerosol inhaler TAKE 2 PUFFS BY MOUTH EVERY 6 HOURS NEEDED FOR WHEEZE active Not Available Not Available No t Available rosuvastatin 20 mg tablet TAKE 1/2 TABLET BY MOUTH DAILY active Not Available Not Available Not Available duloxetine 20 mg capsule,annie yed release TAKE 1 CAPSULE BY MOUTH TWICE A DAY active Not Available Not Available No t Available Advair HFA 115 mcg-21 mcg/actuatio n aerosol inhaler INHALE 2 PUFFS EVERY 12 HOURS active Not Available Not Available No t Available budesonide-f ormoterol HFA 160 mcg-4.5 mcg/actuatio n aerosol inhaler INHALE 2 PUFFS TWICE A DAY active Not Available Not Available No t Available armodafinil 150 mg tablet TAKE 1 TABLET BY MOUTH EVERY DAY IN THE MORNING active Not Available Not Available No t Available Breo Ellipta 100 mcg-25 mcg/dose powder for inhalation INHALE 1 PUFF BY MOUTH DAILY active Not Available Not Available Not Available Wegovy 0.25 mg/0.5 mL subcutaneous pen injector INJECT 0.5 ML (0.25 MG TOTAL) UNDER THE SKIN EVERY 7 DAYS active Not Available Not Available No t Available Vitals Date Recorded Body height Body mass index (BMI) Body weight Provider Name and Address Organization Details Last Updated DateTime 11/26/2023 160.02 cm 39 kg/m2 79339.32 g KYLE CHAVEZ [facility] 11/26/2023 10:14:45 Date Recorded Body height Body mass index (BMI) Body weight Provider Name and Address Organization Details Last Updated DateTime 02/04/2024 160.02 cm 39 kg/m2 12264.32 g KEYUR MARIE [place] [facility] 02/04/2024 09:31:10 Social History None recorded. Functional Status None recorded. Mental Status None recorded. Family History Nothing Reported. Medical History No medical history recorded. Gynecological HistoryNo gynecological history recorded. Obstetrics History GPAL:G 0 P 0 0 0 0 Past Encounters Encounter ID Performer Location Encounter Start Date Encounter Closed Date Diagnosis/Indication Diagnosis SNOMED-CT Code Diagnosis ICD10 Code Diagnosis Note [id number] MD Idris Gutierrez [address] [place] [address] 11/26/2023 09:52:29 12/09/2023 08:16:20 Pain of bilateral hands [id number] 2446458 M79.641 M79.642 Bilateral carpal tunnel syndrome 9284487609 7733128 G56.03 [id number] Sobeida stratton MD [facility] Clinical [address] [place] [address] 02/04/2024 09:18:02 02/20/2024 10:15:15 Bilateral carpal tunnel syndrome [id number] 2883045 G56.03 Pain of bi lateral hands 6257387683 2489982 M79.641 M79.642 Tenosynovi tis of left radial styloid 6868731630 4923475 M65.4 Health Concerns Section Related Observation LastModified by Organization Detai ls LastModified Time None Recorded Concern Status LastModified by Organization Details LastModified Time None Recorded Advance Directives Directive None Recorded Payers Encounter Date Sequence Insurance Name Policy Number Policy West Covered Member ID West Member ID Guarantor Name 11/26/2023 1 MEDICARE B-[place]: [employer] Annemarie Meneses [id number] Annemarie Meneses 11/26/2023 2 [place] [facility] Annemarie Meneses [id number] Annemarie Meneses 02/04/2024 1 [place] [employer] Annemarie Meneses [id number] Annemarie Meneses 02/04/2024 2 [place] [facility] Annemarie Meneses [id number] Annemarie Meneses Notes Date Note Type Note Provider Name and Address Organization Details Recorded Time 11/26/2023 text/html 62 yo RHD retire d female seen for initial eval of bilat hand numbness, she reports the symptoms are much worse at night, has tried braces in the past, but not recently. Has not had a recent nerve study. Has noted some challenges recently with weakness in the hands. Also starting to notice daytime symptoms, numbness will come on while holding her phone. Sobeida Newman MD [address] [place] [address], [place], [address], [facility] 11/26/2023 10:34:52 02/04/2024 text/html 63 yo RHD retire d female seen for follow up eval of bilat hand numbness, diagnosed as carpal tunnel syndrome on clinical exam at our initial evaluation. Here today to review the results of her recent EMG. She also notes that she has been wearing the braces consistently at night and is finding that this is helping with her nighttime symptoms. She has a new problem today of pain along the dorsal radial aspect of her left wrist. Sobeida Newman MD [address] [facility] [address], [place], [address], [facility] 02/04/2024 10:20:29 OBGyn Episode No OBEpisode recorded.
--- OUTSIDE RECORDS SUMMARY | 2024-04-06 10:14 | XMS_ITS | Continuity of Care Document ---
Author Organization [facility] Address [address] [place] [address]- Care Team Providers Care Tele Marketing Executive Name Role Phone Adele CANNON, Laine Primary Care Physician Encounter [facility] Date(s): 09/30/23 - 04/01/24 [facility] [address] [place] [address] Attending Physician: Anibal Bee MD Referring Physician: Laine Angulo MD Encounter Type: Pre-OutPatient One Time Allergies, Adverse Reactions, Alerts Substance Criticality Severity Reaction Reaction Severity Status tetracycline stomach bleeding Active morphine tongue swelling Acti ve Shingrix adivce not to t natalie by Neurology due to her Elsberg Syndrome Active Fluvirin eye redness/blurry A ctive Immunizations Given and Recorded Vaccine Date Status [...] PM EDT, Aerosol, Route to Pharmacy Electronically, [id number], [id number], 159, cm, 09/15/23 14:41:00 EDT, Height, 94.8, kg, 03/14/22 10:22:00 EST, Dry Weight Start Date: 09/15/23 Status: Ordered Quantity: 8.5 Unit: g Repeat number: 6 albuterol inhaler (OP) 0 Refills, Maintenance Start Date: 04/26/19 Status: Ordered Repeat number: 1 Breo Ellipta 100 mcg-25 mcg/inh inhalation powder 1 puffs, Inhalation, Daily, # 30 each, 5 Refills, Maintenance, 04/23/23 9:48:00 AM EST, Powder, [facility]/pharmacy #[id number], NO SUBSTITUTIONS, 1 puffs Inhalation Daily, 159, cm, 11/26/22 9:43:00 EDT, Height, 94.8, kg, 03/14/22 10:22:00 EST, Dry Weight Start Date: 04/23/23 Status: Ordered Quantity: 30.0 Unit: each Repeat number: 6 duloxetine 20 mg oral enteric coated capsule 1 capsule, By Mouth, 2 times a day, # 180 capsule, 1 Refills, Maintenance, 02/20/24 1:48:00 PM EST,[id number], 159, cm, 10/14/23 11:29:00 EDT, Height, 94.8, kg, 03/14/22 10:22:00 EST, Dry Weight Start Date: 02/20/24 Status: Ordered Quantity: 180.0 Unit: capsule Repeat number: 1 hydrochlorothiazide 25 mg oral tablet 1, tablet, By Mouth, Daily, # 90 tablet, Refills 3, Tot. Refills 3, Maintenance, 09/15/23 3:04:00 PMEDT, Route to Pharmacy Electronically, [facility]/pharmacy #[id number], 159, cm, 09/15/23 14:41:00 EDT, Height, 94.8, kg, 03/14/22 10:22:00 EST, Dry Weight Start Date: 09/15/23 Status: Ordered Quantity: 90.0 Unit: tablet Repeat number: 4 LORazepam 1 mg oral tablet See Instructions, TAKE 1 TABLET BY MOUTH TWICE A DAY NEEDED FOR ANXIETY MAY TAKE LESS, # 30 tablet, 0 Refills, Maintenance, 12/22/23 4:04:00 PM EDT, [facility]/pharmacy #[id number], 159, cm, 10/14/23 11:29:00 [...] Refills, Maintenance, 11/26/22 10:10:00 AM EDT, Tablet, [facility]/pharmacy #[id number], Partial fill upon patient [...] 1 Refills, Maintenance, 10/02/23 11:55:00 AM EDT, [facility] [id number], 159, cm, 09/15/23 14:41:00 EDT, Height, 94.8, kg, 03/14/22 10:22:00 EST, Dry Weight Start Date: 10/02/23 Status: Ordered Quantity: 90.0 Unit: capsule Repeat number: 1 Symbicort 160mcg/4.5mcg Inhaler 2, puffs, Inhalation, 2 times a day, # 6 Gm, Refills 5, Tot. Refills 5, Maintenance, 11/26/22 10:14:00 AM EDT, Aerosol, Route to Pharmacy Electronically, [id number], [facility]/pharmacy #[id number], 159, cm, 11/26/22 9:43:00 [...] ( severe disability ) on 06/11/17; initial Miles: 4 on 06/11/17 2SOAPP-R: 14 on 06/11/17 3giving her Elsberg Syndrome which she see DR Devine at [facility] and she gets Valtrex given bythem 4Pain relevant problem list includes: See below Social History Social History Type Response Tobacco Other: stopped at 36 yo. Sex Female Sex Representation Female (finding) Patient Care team information Care Team Personnel Name: Laine Angulo MD Position: [facility] Physician - Primary Care Member Role: PCP Address: [address] [place] [address] Primary Care [place], [place] [address] Telecom: Name: Kaushal CANNON, Tha Weldon Position: [facility] MEDICAL INFORMATION OFFICER Member Role: [employer] MEDICAL INFORMATION OFFICER Physician Address: [address] [place], [place] [address]s [facility] MEDICAL INFORMATION OFFICER [place], [place] [address] Telecom: Name: Reema Francis RN Position: [facility] RN Member Role: Primary Care Nurse Care Team Related Persons Name: GRADY RUSH Name: NEETA GAMING Insurance Providers Guarantor name: ALMA ETHAN Health Plan Information #: 2 Payer: [place] Member Number: [id number] Policy Number: NA Group Number: NA Health Plan Information #: 1 Payer: MEDICARE PART B OUTPT Member Number: [id number] Policy Number: NA Group Number: NA
--- OUTSIDE RECORDS SUMMARY | 2024-04-06 10:14 | XMS_ITS | Data Portability ---
Author Organization [facility], [address] Address [address] [place] [address] Assessment No assessment recorded. Plan of Treatment Reminders Order Date Submit Date Provider Last Modified By Organization Details Last Modified Time Details Appointments None recorded. Lab None recorded. Referral hand surgeon referral 2021 022 [email or web address] 1 Not available 14:33:37 Procedures None recorded. Surgeries None recorded. Imaging XR, finger(s), 2 or more view 2021 022 [email or web address] 4 [facility], [address] [place], [address], 10:25:30 XR, finger(s), 2 or more view 2021 022 PAMELA [facility], [address] [place], [address], 11:04:31 Medication Orders ibuprofen 200 mg tablet 2021 022 [email or web address] 05 Not available 10:34:19 Patient TargetsNo targets recorded. Patient Instructions Encounter Date Encounter Id Patient Instructions Last Modified By Organization Details Last Modified Time 02/15/2022 [id number] ice packs [email or web address] Not available 09:38:02 FOLLOW UP WITH A HAND SPECIALIST OR ORTHOPEDIC THIS WEEK. BRING THE DISC OF YOUR X-RAYS WITH YOU. WEAR THE SPLINT UNTIL YOU ARE CLEARED BY THE SPECIALIST. ICE FOR 20 MINUTES AT A TIME, 2-3 TIMES PER DAY. ELEVATE THE FINGER FREQUENTLY. IF YOU NEED ANY HELP MAKING YOUR SPECIALIST APPOINTMENT PLEASE CALL US IMMEDIATELY. Go to the nearest emergency department if you develop ANY new or worsening symptoms. Call 911 if you feel that you are having a medical emergency. Call your primary care physician today to set up a follow up appointment within one week. Not following up with your primary care physician may result in adverse health conditions. If you have any questions or concerns, please call us. Take over the counter medications such as ibuprofen or tylenol according to package instructions. Do not exceed maximum dosage for age/weight. Do not take anything that you might be allergic to. Make sure to consult us or your primary care physician if you take medications such as blood thinners or blood pressure medications before taking over the counter medications. The best over the counter cough medication for people with high blood pressure is Coricidin, which is available at any pharmacy without a prescription. Drink plenty of water. [email or web address] Not available 02/15/2022 10:06:09 Reason for Referral Hand Surgeon Referral for Pa in in finger of right hand Referring Physician: Jonah Kenny, Urgent Care, Encounter Date: 02/15/2022 Results Created Date Observation Date Name Description Value Unit Range Abnormal Flag Note LastModifiedBy Organization Detail LastModifiedTime 02/16/20 22 02/15/2022 XR, finge r(s), 2 or more view No observ ation record ed. [email or web address] [facility] [address] [place], [address], 02/15/2022 13:40:32 02/16/20 22 02/15/2022 XR, finge r(s), 2 or more view No observ ation record ed. [email or web address] [facility] [address] [place], [address], 02/15/2022 13:40:32 Result Notes None recorded. Problems Name Problem SNOMED Code Status Onset Date Resolution Date Notes Provider Name and Address Organization Details Recorded Time Hypertensive disorder 67779256 Active 2021 [facility] Marshall - [facility] 08:40:58 Asthma 048415321 Active 2021 RHIANNA beauchamp, PA - [facility] 2 08:41:06 Gastroesophage al reflux disease 611073353 Active 2021 RHIANNA beauchamp, PA - [facility] 08:41:10 Problem Notes None recorded. Procedures Surgical History Date Name Laterality Status Provider Name and Address Organization Details Recorded Time Reduction of Dislocation completed [facility] [address] [place], [address], [place] - [facility] 02/15/2022 10:28:25 procedure on knee completed RHIANNA TREVIÑO PA - [facility] 02/15/2022 08:43:30 procedure on back completed RHIANNA TREVIÑO PA - [facility] 02/15/2022 08:43:38 operation on uterus completed [place] TREVIÑO PA - [facility] 02/15/2022 08:44:20 procedure on ear completed EVERGREENHEALTHEY PA - [facility] 02/15/2022 08:44:34 Imaging Results Imaging Date Name Status LastModified by Organiz ation Details LastModified Time 02/15/2022 XR, finger(s), 2 or more view [email or web address] [id number] [facility] [address] [facility] [place], [address], 02/15/2022 13:40:32 02/15/2022 XR, finger(s), 2 or more view completed [email or web address] [id number] [facility] [address] [place], [address], 02/15/2022 13:40:32 Procedure Notes None recorded. Medical Equipment None Reported. Allergies No known drug allergies Medications Name Sig Start Date Stop Date Status Note LastModified by Organization Details LastModified Time ibuprofen 200 mg tablet Take 4 tablets by oral route. 2021 active Not Available Not Available Not Avai lable omeprazole active Not Available Not Av ailable Not Available hydrochlorothia zide active Not Available Not Available Not Available Cymbalta active Not Available Not Avai lable Not Available Symbicort active Not Available Not Parvin ilable Not Available Vitals Date Recorded Body height Body mass index (BMI) Body weight Pain severity - 0-10 verbal numeric rating [Score] - Reported Oxygen saturation Oxygen saturation in Arterial blood by Pulse oximetry Heart rate Respiratory rate Body temperature Systolic blood pressure Diastolic blood pressure Provider Name and Address Organization Details Last Updated DateTime 2 160.02 cm 39 kg/m2 03286.3 2 g 4 97 % 97 % 78 /min 18 /min 97.9 [degF] 143 mm[Hg] 81 mm[Hg] RHIANNA DODGE - [facility] 2 08:45:33 Social History Question Answer Notes LastModified by Organizat ion Details LastModified Time Tobacco Smoking Status Former Smoker [facility] 02/15/2022 08:43:02 What Is Your Level Of Alcohol Consumption? Occasional [email or web address] Information not available 02/15/2022 When Did You Quit Smoking? 11-15yearssinc [email or web address] Information not available 02/15/2022 Do You Use Any Illicit Or Recreational Drugs? No [email or web address] Information not available 02/15/2022 Have You Recently Traveled Abroad? No [email or web address] Information not available 02/15/2022 Do You Or Have You Ever Used Any Other Forms Of Tobacco Or Nicotine? No [email or web address] Information not available 02/15/2022 Sex: Unknown Functional Status None recorded. Mental Status None recorded. Family History Relationship Description Onset Age of this Age Resolved Age Notes LastModified by Organization Details LastModified Time Father No current problems or disability [email or web address] Not available 02/15 08:42:40 Mother No current problems or disability [email or web address] Not available 02/15 08:42:40 Medical History No medical history recorded. Gynecological HistoryNo gynecological history recorded. Obstetrics History GPAL:G 0 P 0 0 0 0 Immunizations Vaccine Type Date Status Note Provider Nam e and Address Organization Details Recorded Time SARS-COV-2 (COVID-19) vaccine, UNSPECIFIED 05/10/2020 completed GAGE Marshall [facility] 02/15/2022 08:41:47 SARS-COV-2 (COVID-19) vaccine, UNSPECIFIED 05/31/2020 completed GAGE Marshall - [facility] 02/15/2022 08:41:58 Past Encounters Encounter ID Performer Location Encounter Start Date Encounter Closed Date Diagnosis/Indication Diagnosis SNOMED-CT Code Diagnosis ICD10 Code Diagnosis Note [id number] [address] [facility] [place] [id number] 01/27/2016 08:24:15 01/27/2016 08:56:13 [id number] [address] [facility] [place] [id number] 03/26/2015 07:58:48 03/26/2015 08:31:54 [id number] [address] [facility] [place] [id number] 09/14/2015 16:17:22 09/14/2015 17:55:54 [id number] [address] [facility] [place] [id number] 01/13/2021 12:48:56 01/13/2021 14:19:43 [id number] [address] [facility] [place] [id number] 11/07/2021 08:12:36 11/07/2021 09:49:36 [id number] [address] [facility] [place] [id number] 04/11/2021 09:07:59 04/11/2021 10:32:37 [id number] EMMA MILES MD [address] [facility] [place] [id number] 02/15/2022 08:10:38 02/15/2022 10:25:30 Pain in finger of right hand [id number] 68913 M79.644 Health Concerns Section Related Observation LastModified by Organization Detai ls LastModified Time None Recorded Concern Status LastModified by Organization Details LastModified Time None Recorded Advance Directives Directive None Recorded Payers Encounter Date Sequence Insurance Name Policy Number Policy West Covered Member ID West Member ID Guarantor Name 01/13/2021 1 [place] [employer] Annemarie Meneses [id number] Annemarie Kat Zytkiewicz 01/13/2021 2 [place] Annemarie Kat Zytkiewicz [id number] Annemarie Kat Zytkiewicz 04/11/2021 1 [place] [employer] Annemarie Kat Zytkiewicz [id number] Annemarie Kat Zytkiewicz 04/11/2021 2 [place] Annemarie Kat Zytkiewicz [id number] Annemarie Kat Zytkiewicz 11/07/2021 1 [place] [facility] Annemarie Kat Zytkiewicz [id number] Annemarie Kat Zytkiewicz 11/07/2021 2 [place] Annemarie Kat Zytkiewicz [id number] Annemarie Kat Zytkiewicz 02/15/2022 1 [place] [facility] Annemarie Kat Zytkiewicz [id number] Annemarie Kat Zytkiewicz 02/15/2022 2 [place] Annemarie Kat Zytkiewicz [id number] Annemarie Kat [employer] Notes Date Note Type Note Provider Name and Address Organization Details Recorded Time 02/15/2022 text/html Finger PainReported bypatient.Notes:Gage aldridge reports yesterday around 4pm she tripped (has a broken toe and using cast shoe) and hit her hand on a chair. Reports pain, swelling, difficulty moving the right 4th digit distally. Reports sensation is intact, but maybe slightly decreased. Nothing OTC. [facility] [place] [address] [place], [address], [place] - [facility] 02/15/2022 10:36:52 OBGyn Episode No OBEpisode recorded.
== END 2024-04-06 10:09 | disposition home or self-care (01) ==
PROVIDERS: PCP Internal Medicine; Visit Provider Hospitalist
DX: J45.40 Moderate persistent asthma, uncomplicated (principal); G47.33 Obstructive sleep apnea (adult) (pediatric); Z99.89 Dependence on other enabling machines and devices; R91.8 Other nonspecific abnormal finding of lung field; M79.89 Other specified soft tissue disorders
CPT/HCPCS: 99214

== ENCOUNTER → 2024-04-06 09:41 | Outpatient (BNVA) | payer MEDICARE, MEDICAID, SELFPAY | PROVIDERS: PCP Internal Medicine; Visit Provider Hospitalist | DX: J45.40 Moderate persistent asthma, uncomplicated (principal); G47.33 Obstructive sleep apnea (adult) (pediatric); R91.8 Other nonspecific abnormal finding of lung field; M79.89 Other specified soft tissue disorders; Z99.89 Dependence on other enabling machines and devices | CPT/HCPCS: 99212 ==

== ENCOUNTER 2024-06-28 09:03 | Outpatient (REF) | payer MEDICARE, MEDICAID, SELFPAY ==
--- NOTE | ~2024-06-28 | CT_ITS ---
CLINICAL HISTORY: Z87.891 - Personal history of nicotine dependence Examination CT lung cancer screening History Screening examination performed for pulmonary nodules Technique Axial CT images of the chest using low-dose technique. Effective radiation dose total: 58.9 mGy-cm, CTDIvol 1.6 mGy. Referring provider counseled the patient on shared decision-making for LDCT screening. Additional counseling was provided on smoking cessation. Comparison: CT/REG/AZ/SR - CT LUNG SCREENING - 06/26/23 13:[address]/REG/AZ/SR - CT LUNG SCREENING - 06/05/22 09:06 EDT Findings: Lungs: 2 mm left upper lobe nodule, stable (series 6, image 34). No new nodules. Unchanged linear scarring in the right middle lobe and lingula. No emphysema Coronary artery calcifications: None Other: None Limited upper abdomen: Hepatic steatosis Impression: LungRADS 2 - Benign Appearance: Continue annual screening with low dose Chest CT in 12 months. ##L2# Category 1: Normal; continue annual screening Category 2: Benign appearance or behavior, continue annual screening Category 3: Probably benign, [address] recommended Category 4A: Suspicious, [address] recommended; may consider PET/CT Category 4B: Suspicious, Additional diagnostics and/or tissue sampling recommended Category 4X: Suspicious, Additional diagnostics and/or tissue sampling recommended Category 0: Recalls (incomplete screen due to Incomplete coverage, Noise, Respiratory motion, Expiration, Obscured by acute abnormality) This document has been electronically signed by: Lizz Quintana MD on 06/28/2024 15:23:39
--- OUTSIDE RECORDS SUMMARY | 2024-06-28 09:51 | XMS_ITS | Clinical Summary ---
Author Organization [employer] Address [address] [place] [address] Care Team Providers Care Tobacco Classer Name Role Phone Unavailable Primary Care Provider [...] - 2023-2 5 season) 2023 Influenza Vaccine (Season Ended) 2024 RSV 60+ (1 - 1-dose 75+ series) [...]
--- OUTSIDE RECORDS SUMMARY | 2024-06-28 09:51 | XMS_ITS | Data Portability ---
Author Organization [place] - [facility], Allergy Address [address] [address] Care Team Providers Care Smasher Name Role Phone DEBBIE MARIE Primary Care Provider [phone] Assessment Encounter Date Assessment Date Assessment LastModified [...] is well aerated. I did check a [place] Hallpike today which was negative for nystagmus. [...] up in 2-3 months for ear cleaning. Not available 03/30/2024 10:40:35 06/03/2024 06/03/2024 63 year old morgan richardson presents for ear cleaning. Ears were meticulously cleaned bilaterally today with fine pics. Impacted cerumen and squamous debris were removed. She has small canals. Encouraged her to try olive oil drops for the itching. She also has Lotrisone at home. She will follow up in 2-3 months for ear cleaning prior to her family vacation in August. Not available 06/03/2024 09:42:37 Plan of Treatment Reminders Order Date Submit Date Provider Last Modified By Organization Details Last Modified Time Details Appointments Establish ed 15 2024 11:00A M ELIZABETH CROCKETT PA-C Not available Not available Not available Lab None recorded. Referral None recorded. Procedures None recorded. Surgeries None recorded. Imaging None recorded. Medication Orders clotrimaz ole 1 % topical solution 2023 024 [facility]/Pharmacy #[id number], [address] [place], [address], 11/25/2023 09:57:38 clotrimaz ole-betam ethasone 1 %-0.05 % topical cream 2023 024 [facility]/Pharmacy #[id number], [address] [place], [address], 11/25/2023 09:57:38 clotrimaz ole 1 % topical solution 2023 024 [facility] #[id number], [address] [place], [address], 09/17/2023 10:41:27 Patient TargetsNo targets recorded. Patient InstructionsNo instructions recorded. Reason for Referral None Reported. Results Created Date Observation Date Name Description Value Unit Range Abnormal Flag Note LastModifiedBy Organization Detail LastModifiedTime 10/22/1902/25/2019 imagi ng/di agnos tic resul t No observ ation record ed. [email or web address] Not Available 03:38:03 10/22/19 24 02/25/2019 imagi ng/di agnos tic resul t No observ ation record ed. [email or web address] Not Available 03:38:09 Result Notes None recorded. Problems Name Problem SNOMED Code Status Onset Date Resolution Date Notes Provider Name and Address Organization Details Recorded Time Impacted cerumen of bilateral ears 44350601626 49169 Active 2022 Impacted cerumen, bilateral ; Note: Date Diagnosed : 10/21/2022 11:50 AM (H61.23) Impacte d cerumen, bilateral ; Note: Date Diagnosed : 5 1:28 PM (H61.23) ; Start Date : 5 Not Available [facility] 4 03:02:18 Superfici al mycosis 413668652 Active 2021 Other specified superfici al mycoses; Note: Date Diagnosed : 2 10:11 AM (B36.8) Not Available [facility] 4 03:02:15 Impacted cerumen 49952099 Active 2014 Impacted cerumen; Note: Date Diagnosed : 05/26/2014 2:12 PM (380.4) Not Available [facility] 4 03:02:15 Headache 03897957 Active 2018 Headache; Note: Date Diagnosed : 03/05/2018 9:03 AM (R51) Not Available [facility] 4 03:02:17 Allergic rhinitis 16305302 Active 2014 Allergic rhinitis, unspecifi ed; Note: Date Diagnosed : 5 1:32 PM (J30.9) Not Available [facility] 4 03:02:16 Obstructi ve sleep apnea syndrome 83144834 Active 2014 Obstructi ve sleep apnea (adult) (pediatri c); Note: Date Diagnosed : 05/26/2014 2:12 PM (327.23) ; Start Date : 5 Obstruc tive sleep apnea (adult) (pediatri c); Note: Date Diagnosed : 5 1:28 PM (G47.33) Not Available [facility] 4 03:02:18 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 63001528764 05415 Active 2021 Other acquired stenosis of external ear canal, bilateral ; Note: Date Diagnosed : 2 10:17 AM (H61.393) Not Available [facility] 4 03:02:17 Bleeding from nose 777611965 Active 2015 Epistaxis ; Note: Date Diagnosed : 07/17/2015 9:07 AM (R04.0) Not Available [facility] 4 03:02:17 Dysphonia 84697840 Active 2018 Hoarsenes s; Note: Date Diagnosed : 9 10:26 AM (R49.0) Not Available [facility] 4 03:02:16 Laryngeal spasm 483120749 Active 2018 Laryngeal spasm; Note: Date Diagnosed : 01/06/2019 10:21 AM (J38.5) Not Available [facility] 4 03:02:16 Simple obesity 894524025 Active 2018 Other obesity due to excess calories; Note: Date Diagnosed : 07/08/2018 11:18 AM (E66.09) Not Available [facility] 4 03:02:15 Bilateral disorder of Eustachia n tubes 23751374115 98727 Active 2017 Other specified disorders of Eustachia n tube, bilateral ; Note: Date Diagnosed : 07/07/2017 9:38 AM (H69.83) Not Available [facility] 4 03:02:16 Chronic mycotic otitis externa 638562702 Active 2023 Ethel beauchamp [place] - [facility] 4 10:40:11 Seborrhei c dermatiti s 79994857 Active 2023 Seborrhei c dermatiti s, unspecifi ed; Note: Date Diagnosed : 06/19/2023 10:23 AM (L21.9) Not Available [facility] 4 03:02:17 Dizziness and giddiness 967385544 Active 2023 Ethel beauchamp [place] - [facility] 4 10:13:40 Problem Notes None recorded. Procedures Surgical History Date Name Laterality Status Provider Name and Address Organization Details Recorded Time 5 Cerumen removal without microscope bilat completed NEETA GUZMAN PA-C [address] [place] [address],[address], [address], [facility] - [facility] 06/03/2024 09:34:38 5 Cerumen removal without microscope bilat completed NEETA GUZMAN PA-C [address] [place] [address],[address], [address], [facility] - [facility] 03/30/2024 10:39:44 Imaging Results Imaging Date [...] Name and Address Organization Details Recorded Time 662016 Medicinal product containin g tetracycl ine structure and acting as antibacte rial agent (product) medicatio n other Not available Not available 07/15/2023 05692 1004 SNOMED React ion: unkno wn, unspe cifie d;; Not Available [facility] 4 01:17:25 451974 morphine medicatio n other Not available Not available 07/15/2023 7052 RxNorm React ion: unkno wn, unspe cifie d;; Not Available [facility] 4 01:17:26 Medications Name Sig Start Date Stop Date Status Note LastModified by Organization Details LastModified Time oxcarbaze pine 150 mg tablet TAKE 1 TABLET BY MOUTH NIGHTLY AT BEDTIME. active Not Available Not Available No t Available ipratropi um 0.5 mg-albute rol 3 mg (2.5 mg base)/3 mL nebulizat ion soln USE 1 VIAL INHALED VIA NEBULIZE R EVERY 6 HOURS NEEDED FOR WHEEZING *MED B QUESTION S* active Not Available Not Available No t Available albuterol sulfate 2.5 mg/3 mL (0.083 %) solution for nebulizat ion 11/15 completed Medicati on ID: [id number] D uration Value: 15 Brand Name: albutero [...] transderm al 11/05 completed Medicati on ID: [id number] D uration Value: 28 Reason: () Brand Name: CombiPat ch Send Method: E-Prescr ibed Sub s Allowed: subs OK Speci al Instruct ion: APPLY 1 PATCH BY TRANSDER LUCIANA TWICE WEEKLY FOR 28 DAYS Med icationG enericNa me: CombiPat ch Not Available Not Available Not Available ibuprofen 800 mg tablet 07/16 completed Medicati on ID: [id number] Du ration Value: 30 Reason: () Brand Name: ibuprofe n Send Method: E-Prescr ibed Sub s Allowed: subs OK Speci al Instruct ion: TAKE 1 TABLET BY MOUTH 3 TIMES A DAY WITH MEALS Me dication GenericN nathaly: ibuprofe n Not Available Not Available Not Available valacyclo vir 1 gram tablet 12/01 completed Medicati on ID: [id number] D uration Value: 30 Brand Name: valacycl [...] topical cream 11/15 completed Medicati on ID: [id number] B rand Name: fluorour acil Sen d [...] mg tablet 01/22 completed Medicati on ID: [id number] B rand Name: tramadol Send Method: E-Prescr ibed Sub s Allowed: subs OK Speci al Instruct ion: TAKE 12 TABLET BY MOUTH EVERY 6 HOURS NEEDED FOR PAIN WITH 500 MG ACETAMIN OPHEN Me dication GenericN nathaly: tramadol Not Available Not Available Not Available oxycodone -acetamin ophen 5 mg-325 mg tablet TAKE 1 TABLET BY MOUTH EVERY 4 HOURS NEEDED FOR PAIN active Not Available Not Available No t Available Multi-Vit johnson HP/Minera ls capsule 2015 active Medicati on ID: [id number] B rand Name: Multi-Vi tamin HP/[place] als Send Method: E-Prescr ibed Sub s Allowed: subs OK Medic ationGen ericName : Multi-Vi tamin HP/[place] als Not Available Not Available Not Available [...] mg capsule 11/15 completed Medicati on ID: [id number] D uration Value: 90 Brand Name: gabapent [...] mg tablet 11/05 completed Medicati on ID: [id number] D uration Value: 90 Reason: () Brand [...] spray,bertram pension 07/16 completed Medicati on ID: [id number] Du ration Value: 30 Reason: () Brand Name: fluticas one Send Method: E-Prescr ibed Sub s Allowed: subs OK Speci al Instruct ion: USE 2 SPRAYS IN EACH NOSTRIL ONCE A DAY Medi cationGe nericNam e: fluticas one Not Available Not Available Not Available neomycin 3.5 mg/g-poly myxin B 10,000 unit/g-de xameth 0.1 % eye oint 01/22 completed Medicati on ID: [id number] B rand Name: neomycin -polymyx in B-dexame th Send Method: E-Prescr ibed Sub s Allowed: subs OK Speci al Instruct ion: APPLY AT BEDTIME INTO BOTH EYES Med icationG enericNa me: neomycin -polymyx in B-dexame th Not Available Not Available Not Available clonazepa m 0.25 mg disintegr ating tablet 01/30 completed Medicati on ID: [id number] Du ration Value: 30 Reason: () Brand [...] elayed release 11/15 completed Medicati on ID: [id number] D uration Value: 90 Brand Name: duloxeti [...] 5 drop 11/05 completed Medicati on ID: [id number] Jose alcantara By Name: Barry Gomez MD Brand Name: DermOtic Oil Send Method: E-Prescr ibed Sub s Allowed: subs OK Medic ationGen ericName : DermOtic Oil Not Available Not Available Not Available hydrochlo rothiazid e 12.5 mg tablet 01/22 completed Medicati on ID: [id number] B rand Name: hydrochl orothiaz gayatri Send Method: E-Prescr ibed Sub s Allowed: subs OK Speci al Instruct ion: TAKE 2 TABLETS BY MOUTH EVERY MORNING Medicati onGeneri cName: hydrochl orothiaz gayatri Not Available Not Available Not Available Symbicort 80 mcg-4.5 mcg/actua tion HFA aerosol inhaler 07/08 completed Medicati on ID: [id number] R kentrell: () Brand Name: Symbicor t [...] unit) capsule 11/05 completed Medicati on ID: [id number] D uration Value: 56 Reason: () Brand Name: cholecal ciferol (vitamin D3) Send Method: E-Prescr ibed Sub s Allowed: subs OK Speci al Instruct ion: 1 CAPSULE ONCE WEEKLY ORALLY 56 DAYS Med icationG enericNa me: cholecal ciferol (vitamin D3) Not Available Not Available Not Available armodafin il 150 mg tablet TAKE 1 TABLET BY MOUTH EVERY MORNING FOR 30 DAYS active Not Available Not Available No t Available Breo Ellipta 100 mcg-25 mcg/dose powder for inhalatio n INHALE 1 PUFF BY MOUTH DAILY active Not Available Not Available No t Available Wegovy 0.25 mg/0.5 mL subcutane ous pen injector INJECT 0.5 ML (0.25 MG TOTAL) UNDER THE SKIN EVERY 7 DAYS active Not Available Not Available No t Available Wegovy 0.5 mg/0.5 mL subcutane ous pen injector INJECT 1 SYRINGE UNDER THE SKIN ONCE A WEEK. active Not Available Not Available No t Available Vitals Date Recorded Body height Body mass index (BMI) Body weight Provider Name and Address Organization Details Last Updated DateTime 06/03/2024 160.02 cm 35.3 kg/m2 23690.88 g Reshma Norton [place] - [facility] 06/03/2024 09:21:56 Date Recorded Body height Body mass index (BMI) Body weight Provider Name and Address Organization Details Last Updated DateTime 09/17/2023 160.02 cm 38.3 kg/m2 85302.95 g Kanika Hood [place] - [facility] 09/17/2023 09:53:13 Date Recorded Body height Body mass index (BMI) Body weight Provider Name and Address Organization Details Last Updated DateTime 11/25/2023 160.02 cm 38.3 kg/m2 66254.95 g Reshma Norton [place] - [facility] 11/25/2023 09:32:29 Date Recorded Body height Body mass index (BMI) Body weight Provider Name and Address Organization Details Last Updated DateTime 01/26/2024 160.02 cm 38.3 kg/m2 49295.95 g Reshma Norton [place] - [facility] 01/26/2024 09:35:06 Date Recorded Body height Body mass index (BMI) Body weight Provider Name and Address Organization Details Last Updated DateTime 03/30/2024 160.02 cm 35.3 kg/m2 64324.88 g Aylin Samuel [place] - [facility] 03/30/2024 10:03:07 Social History None recorded. Functional Status None recorded. Mental Status None recorded. Family History Nothing Reported. Medical History No medical history recorded. Gynecological HistoryNo gynecological history recorded. Obstetrics History GPAL:G 0 P 0 0 0 0 Past Encounters Encounter ID Performer Location Encounter Start Date Encounter Closed Date Diagnosis/Indication Diagnosis SNOMED-CT Code Diagnosis ICD10 Code Diagnosis Note [id number] Ethel Franco [facility] on [address] [place] [address] 09/17/2023 09:47:19 09/17/2023 10:14:39 Chronic mycotic otitis externa 980954985 H60.399 Impacted c erumen of bilateral ears 9628702921 008561 H61.23 [id number] ELZBIETA ARSHAD MD [facility] on [address] [place] [address] 11/25/2023 09:24:31 11/25/2023 09:51:39 Chronic mycotic otitis externa 459085099 H60.399 Impacted c erumen of bilateral ears 3369931984 488152 H61.23 [id number] MARYBEL HUTTON MD [facility] on [address] [place] [address], [place] [address] 01/26/2024 09:33:26 01/26/2024 10:07:39 Impacted cerumen of bilateral ears 2691113553 727676 H61.23 Dizziness and giddiness 653317291 R42 [id number] ELZBIETA ARSHAD MD [facility] on [address] [place] [address] 03/30/2024 09:59:22 03/30/2024 10:39:36 Impacted cerumen of bilateral ears 5718041595 466437 H61.23 [id number] ELZBIETA ARSHAD MD [facility] on [address] [place] [address] 06/03/2024 09:20:05 06/03/2024 09:33:51 Impacted cerumen of bilateral ears 7917077232 075576 H61.23 Health Concerns Section Related Observation LastModified by Organization Detai ls LastModified Time None Recorded Concern Status LastModified by Organization Details LastModified Time None Recorded Advance Directives Directive None Recorded Payers Encounter Date Sequence Insurance Name Policy Number Policy West Covered Member ID West Member ID Guarantor Name 09/17/2023 1 [place] B-[place] [facility] Annemarie Meneses [id number] Annemarie Meneses 09/17/2023 2 [place] Annemarie Meneses [id number] Annemarie Meneses 11/25/2023 1 [place] [employer] Annemarie Meneses [id number] Annemarie Meneses 11/25/2023 2 [place] Annemarie Meneses [id number] Annemarie Meneses 01/26/2024 1 [place] Annemarie Meneses [id number] Annemarie Meneses 01/26/2024 2 [place] Annemarie Meneses [id number] Annemarie Meneses 03/30/2024 1 [place] B-[place] [facility] Annemarie Meneses [id number] Annemarie Meneses 03/30/2024 2 [place] [facility] Annemarie Meneses [id number] Annemarie Meneses 06/03/2024 1 [place] B-[place] [facility] Annemarie Meneses [id number] Annemarie Meneses 06/03/2024 2 [place] [facility] Annemarie Meneses [id number] Annemarie Meneses Notes Date Note Type Note Provider Name and Address Organization Details Recorded Time 09/17/2023 text/html 62 year old morgan richardson with a history of narrow ear canals and a tendency for cerumen and squamous debris impaction.Here today for ear blockage and itching. There is some pain on the left. Ethel beauchamp [place] - [facility] 09/17/2023 10:41:44 11/25/2023 text/html 62 year old morgan richardson presents today for an ear cleaning.She was last seen two months ago at which time exam was suggestive of chronic fungal otitis externa. She was prescribed topical clotrimazole drops. She does feel it helped for a short time, but then ears became blocked and she has had itching. ELZBIETA ARSHAD MD [address] [place] [address], [address], [facility] 11/25/2023 10:11:46 01/26/2024 text/html 62 year [...] changes. Also some lightheadedness. MARYBEL HUTTON MD [address] [place] [address],[place] [address], [place], [address], [place] - [facility] 01/26/2024 19:44:41 03/30/2024 text/html 63 year old morgan richardson presents for ear cleaning. No acute concerns. ELZBIETA ARSHAD MD [address] [place] [address], [phone], [place] - [facility] 03/31/2024 07:23:22 06/03/2024 text/html 63 year old morgan richardson presents for ear cleaning. Her ears have felt a bit itchy. She does not use qtips. ELZBIETA ARSHAD MD [address] [place] [address],[place] [address], [place], [address], [place] - [facility] 06/03/2024 10:04:48 OBGyn Episode No OBEpisode recorded.
--- OUTSIDE RECORDS SUMMARY | 2024-06-28 09:51 | XMS_ITS | Data Portability ---
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 Referral None record ed. Procedures nerve conduc tion study/ EMG, upper extrem ity (PROC) - diag bilat eral carpal tunnel syndro me please do emg [facility] bilate ral upper extrem ities please call pt with time and date 2023 024 jamila [facility] Neurology Scheduling, [address] [place], [address], 11/26/2023 10:35:06 Surgeries None record ed. Imaging None record ed. Medication Orders None record ed. Patient TargetsNo targets recorded. Patient InstructionsNo instructions recorded. Reason for Referral None Reported. Results Created Date Observation Date Name Description Value Unit Range Abnormal Flag Note LastModifiedBy Organization Detail LastModifiedTime 01/16/2001/16/2024 physi padmaja thera py evalu ation * No observ ation record ed. [email or web address] [facility] Scheduling Dept [address] [place], [address], 01/19/2024 09:12:02 Result Notes None recorded. Procedures Surgical History Date Name Laterality Status Provider Name and Address Organization Details Recorded Time 02/04/20 24 JZCelestone Wrist Tendon Inj completed Sobeida Newman MD [address], [place], [address], [facility] 02/04/2024 10:17:14 Imaging Results Imaging Date Name Status LastModified by Organiz ation Details LastModified Time 01/16/2024 physical therapy evaluation* completed [email or web address] [facility] Scheduling Dept [address] [facility] [place], [address], 01/19/2024 09:12:02 Procedure Notes None recorded. Medical [...] Updated DateTime 11/26/2023 160.02 cm 39 kg/m2 52382.32 g KYLE CHAVEZ [facility] 11/26/2023 10:14:45 Date Recorded Body height Body mass index (BMI) Body weight Provider Name and Address Organization Details Last Updated DateTime 02/04/2024 160.02 cm 39 kg/m2 96369.32 g KEYUR MARIE MA [facility] 02/04/2024 09:31:10 Social History None recorded. Functional Status None recorded. Mental Status None recorded. Family History Nothing Reported. Medical History No medical history recorded. Gynecological HistoryNo gynecological history recorded. Obstetrics History GPAL:G 0 P 0 0 0 0 Past Encounters Encounter ID Performer Location Encounter Start Date Encounter Closed Date Diagnosis/Indication Diagnosis SNOMED-CT Code Diagnosis ICD10 Code Diagnosis Note [id number] MD Cristo Gutierrez [address] [place] [address] 11/26/2023 09:52:29 12/09/2023 08:16:20 Pain of bilateral hands 4586653745 4249707 M79.641 M79.642 Bilateral carpal tunnel syndrome 8325587984 5210399 G56.03 [id number] Sobeida stratton MD [facility] Clinical [address] [place] [address] 02/04/2024 09:18:02 02/20/2024 10:15:15 Bilateral carpal tunnel syndrome 9318673354 9827337 G56.03 Pain of bi lateral hands 9276126363 7062366 M79.641 M79.642 Tenosynovi tis of left radial styloid 0082146199 7415973 M65.4 Health Concerns Section Related Observation LastModified by Organization Detai ls LastModified Time None Recorded Concern Status LastModified by Organization Details LastModified Time None Recorded Advance Directives Directive None Recorded Payers Encounter Date Sequence Insurance Name Policy Number Policy West Covered Member ID West Member ID Guarantor Name 11/26/2023 1 [place] [facility] Annemarie Meneses [id number] Annemarie Meneses 11/26/2023 2 [place] [facility] Annemarie Meneses [id number] Annemarie Meneses 02/04/2024 1 [place] [facility] Annemarie Meneses [id number] Annemarie Meneses 02/04/2024 2 [place] [facility] Annemarie Meneses [id number] Annemarie Meneses Notes Date Note Type Note [...] holding her phone. Sobeida Newman MD [address] [place] [address], [place], [address], [facility] 11/26/2023 10:34:52 02/04/2024 [...] her left wrist. Sobeida Newman MD [address] [facility] [address], [place], [address], [facility] 02/04/2024 10:20:29 OBGyn Episode No OBEpisode recorded.
--- OUTSIDE RECORDS SUMMARY | 2024-06-28 09:51 | XMS_ITS | Data Portability ---
Author Organization [facility], [address] Address [address] [place] [address] Assessment No assessment recorded. Plan of Treatment Reminders Order Date Submit Date Provider Last Modified By Organization Details Last Modified Time Details Appointments None recorded. Lab None recorded. Referral hand surgeon referral 2021 022 [email or web address] 1 Not available 14:33:37 Procedures None recorded. Surgeries None recorded. Imaging XR, finger(s), 2 or more view 2021 022 [email or web address] 4 [facility], [address] [place], [address], 10:25:30 XR, finger(s), 2 or more view 2021 022 PAMELA [facility], [address] [place], [address], 11:04:31 Medication Orders ibuprofen 200 mg tablet 2021 022 [email or web address] 05 Not available 10:34:19 Patient TargetsNo targets recorded. Patient Instructions Encounter Date Encounter Id Patient Instructions Last Modified By Organization Details Last Modified Time 02/15/2022 [id number] ice packs [email or web address] Not available 09:38:02 FOLLOW UP WITH A [...] without a prescription. Drink plenty of water. [email or web address] Not available 02/15/2022 10:06:09 Reason for Referral Hand Surgeon Referral for Pa in in finger of right hand Referring Physician: Jonah Kenny, Urgent Care, Encounter Date: 02/15/2022 Results Created Date Observation Date Name Description Value Unit Range Abnormal Flag Note LastModifiedBy Organization Detail LastModifiedTime 02/16/20 22 02/15/2022 XR, finge r(s), 2 or more view No observ ation record ed. [email or web address] [facility] [address] [place], [address], 02/15/2022 13:40:32 02/16/20 22 02/15/2022 XR, finge r(s), 2 or more view No observ ation record ed. [email or web address] [facility] [address] [place], [address], 02/15/2022 13:40:32 Result Notes None recorded. Problems Name Problem SNOMED Code Status Onset Date Resolution Date Notes Provider Name and Address Organization Details Recorded Time Hypertensive disorder 37084888 Active 2021 GAGE Marshall - [facility] 08:40:58 Asthma 194402781 Active 2021 RHIANNA beauchamp, PA - [facility] 2 08:41:06 Gastroesophage al reflux disease 069007761 Active 2021 RHIANNA beauchamp, PA - [facility] 08:41:10 Problem Notes None recorded. Procedures Surgical History Date Name Laterality Status Provider Name and Address Organization Details Recorded Time Reduction of Dislocation completed [facility] [address] [place], [address], [place] - [facility] 02/15/2022 10:28:25 procedure on knee completed RHIANNA TREVIÑO PA - [facility] 02/15/2022 08:43:30 procedure on back completed RHIANNA TREVIÑO PA - [facility] 02/15/2022 08:43:38 operation on uterus completed PHOENIX TREVIÑO PA - [facility] 02/15/2022 08:44:20 [facility] 02/15/2022 08:44:34 Imaging Results Imaging Date Name Status LastModified by Organiz ation Details LastModified Time 02/15/2022 XR, finger(s), 2 or more view completed [place] [address] [facility] [address] [facility] [place], [address], 02/15/2022 13:40:32 02/15/2022 XR, finger(s), 2 or more view completed [place] [address] [facility] [address] [place], [address], 02/15/2022 13:40:32 Procedure Notes None recorded. Medical [...] Updated DateTime 2 160.02 cm 39 kg/m2 46082.3 2 g 4 97 % 97 % 78 /min 18 /min 97.9 [degF] 143 mm[Hg] 81 mm[Hg] RHIANNA DODGE - [facility] 2 08:45:33 Social History Question Answer Notes LastModified by Organizat ion Details LastModified Time Tobacco Smoking Status Former Smoker [facility] 02/15/2022 08:43:02 What Is Your Level Of Alcohol Consumption? Occasional [email or web address] Information not available 02/15/2022 When Did You Quit Smoking? 11-15yearssinc elastcigarette Information not available 02/15/2022 Do You Use Any Illicit Or Recreational Drugs? No [email or web address] Information not available 02/15/2022 Have You Recently Traveled Abroad? No [email or web address] Information not available 02/15/2022 Do You Or Have You Ever Used Any Other Forms Of Tobacco Or Nicotine? No [email or web address] Information not available 02/15/2022 Sex: Unknown Functional Status None recorded. Mental Status None recorded. Family History Relationship Description Onset Age of this Age Resolved Age Notes LastModified by Organization Details LastModified Time Father No current problems or disability [email or web address] Not available 02/15 08:42:40 Mother No current problems or disability [email or web address] Not available 02/15 08:42:40 Medical History No [...] SNOMED-CT Code Diagnosis ICD10 Code Diagnosis Note [id number] [address] [facility] [place] [address] 01/27/2016 08:24:15 01/27/2016 08:56:13 [id number] [address] [facility] [place] [address] 03/26/2015 07:58:48 03/26/2015 08:31:54 [id number] [address] [facility] [place] [address] 09/14/2015 16:17:22 09/14/2015 17:55:54 [id number] [address] [facility] [place] [address] 01/13/2021 12:48:56 01/13/2021 14:19:43 [id number] [address] [facility] [place] [address] 11/07/2021 08:12:36 11/07/2021 09:49:36 [id number] [address] [facility] [place] [address] 04/11/2021 09:07:59 04/11/2021 10:32:37 [id number] EMMA MILES MD [address] [facility] [place] [address] 02/15/2022 08:10:38 02/15/2022 10:25:30 Pain in finger of right hand [id number] 26888 M79.644 Health Concerns Section Related Observation LastModified by Organization Detai ls LastModified Time None Recorded Concern Status LastModified by Organization Details LastModified Time None Recorded Advance Directives Directive None Recorded Payers Encounter Date Sequence Insurance Name Policy Number Policy West Covered Member ID West Member ID Guarantor Name 01/13/2021 1 [place] [employer] Annemarie Meneses [id number] Annemarie Kat Zytkiewicz 01/13/2021 2 [place] Annemarie Kat Zytkiewicz [id number] Annemarie Kat Zytkiewicz 04/11/2021 1 [place] [employer] Annemarie Kat Zytkiewicz [id number] Annemarie Kat Zytkiewicz 04/11/2021 2 [place] Annemarie Kat Zytkiewicz [id number] Annemarie Kat Zytkiewicz 11/07/2021 1 [place] [facility] Annemarie Kat Zytkiewicz [id number] Annemarie Kat Zytkiewicz 11/07/2021 2 [place] Annemarie Kat Zytkiewicz [id number] Annemarie Kat Zytkiewicz 02/15/2022 1 [place] [facility] Annemarie Kat Zytkiewicz [id number] Annemarie Kat Zytkiewicz 02/15/2022 2 [place] Annemarie Kat Zytkiewicz [id number] Annemarie Kat [employer] Notes Date Note Type [...] OTC. [facility] [address] [place], [address], [place] - [facility] 02/15/2022 10:36:52 OBGyn Episode No OBEpisode recorded.
== END 2024-06-28 09:04 | disposition home or self-care (01) ==
LOC: HO.CT 09:03
PROVIDERS: PCP Internal Medicine; Visit Provider Nurse Practitioner Family
DX: Z12.2 Encounter for screening for malignant neoplasm of respiratory organs (principal); Z87.891 Personal history of nicotine dependence
CPT/HCPCS: 71271

== ENCOUNTER → 2024-06-28 09:05 | Outpatient (BNV) | payer MEDICARE, MEDICAID, SELFPAY | PROVIDERS: PCP Internal Medicine; Visit Provider Radiology Diagnostic Radiology | DX: F17.210 Nicotine dependence, cigarettes, uncomplicated (principal) | CPT/HCPCS: 71271 ==

== ENCOUNTER 2024-09-13 14:30 | Emergency (ER) | payer MEDICARE, MEDICAID, SELFPAY ==
--- NOTE | ~2024-09-13 | XR_ITS ---
EXAMINATION: XR CHEST CLINICAL INFORMATION: chest pain COMPARISON: 08/25/2023 TECHNIQUE: 2 views of the chest were obtained. FINDINGS: The cardiac, hilar, and mediastinal contours are normal. The lungs are clear bilaterally. There is no pneumothorax or pleural effusion. There is no focal osseous or soft tissue abnormality. XR/XR chest 2V IMPRESSION: No active pulmonary disease. Electronically signed by: Bc Griffith MD 09/13/2024 03:54 PM EDT
--- NOTE | 2024-09-13 14:32 | ECG_ITS ---
Test Reason : CHEST PAIN Blood Pressure : */* mmHG Vent. Rate : 87 BPM Atrial Rate : 87 BPM P-R Int : 146 ms QRS Dur : 80 ms QT Int : 358 ms P-R-T Axes : * -26 111 degrees QTcB Int : 430 ms Normal sinus rhythm Anterolateral infarct , age undetermined Abnormal ECG When compared with ECG of 08-Nov-2020 09:06, Anterolateral infarct is now Present Nonspecific T wave abnormality, worse in Inferior leads Nonspecific T wave abnormality now evident in Lateral leads Referred By: Generic ED Physician Electronically Signed By: ALEXANDRU HUGO
[2024-09-13 14:58] VITALS: BP 138/60; PULSE 78; RESP 18; TEMP 36.4; O2SAT 97; BMI 34.5
--- NOTE | 2024-09-13 15:04 | ED_ITS ---
HPI - Chest Pain General Chief Complaint: Chest Pain Stated Complaint: chest pain Time Seen by Provider: 09/13/24 18:59 Source: patient Mode of arrival: ambulatory Limitations: no limitations History of Present Illness ED Provider: Marie Klein PA-C HPI narrative: Patient is a 63 year old assigned female at with a history of asthma-COPD overlap syndrome and JACY presenting to the emergency department today with chest pain / tightness and intermittent shortness of breath. Patient states that over the last few days she has felt short of breath with chest tightness. Patient denies any dizziness, lightheadedness, abdominal pain, nausea, vomiting, fever, chills, blurry vision, double vision, loss of vision, back pain, night sweats, pain with urination, increased urinary frequency, increased urinary urgency, blood in her urine or stool, syncope or a near syncopal episode, recent trauma or falls, bowel incontinence, bladder incontinence, or any other complaints at this time. MD complaint: chest pain Related Data Home Medications ?Medication ?Instructions ?Recorded ?Confirmed duloxetine 20 mg capsule,delayed 20 mg PO BID 12/10/19 12/28/21 release hydrochlorothiazide 12.5 mg tablet 25 mg PO QAM 12/28/21 metronidazole 0.75 % topical cream applic topical LA Y 05/30/20 12/28/21 omeprazole 20 mg capsule,delayed mg PO DAILY PRN 05/3012/28/21 release semaglutide (weight loss) 0.25 0.25 mg subcut QWEEK mg/0.5 mL subcutaneous pen injector ([place]) Previous Rx's ?Medication ?Instructions ?Recorded Magic Mouthwash 5 ml PO Q8H PRN sore throat 03/07/21 Diphen/Lido/Antacid 1:1:1 240 mL days #240 mL suspension azithromycin 250 mg tablet See Rx Instructions PO .COM PLEX #6 08/22/23 tabs codeine 10 mg-guaifenesin 100 mg/5 10 ml PO Q6H PRN co ugh #473 mL 08/22/23 mL oral liquid ipratropium 0.5 mg-albuterol 3 mg 3 ml inhalation Q6H PRN wheezing 08/22/23 (2.5 mg base)/3 mL nebulization #90 mL soln prednisone 20 mg tablet 40 mg (2 x 20 mg) PO DAILY # 10 tabs 08/22/23 codeine 10 mg-guaifenesin 100 mg/5 10 ml PO Q6H PRN co ugh 10 days 12/17/23 mL oral liquid #300 mL doxycycline monohydrate 100 mg 100 mg PO BID 14 days # 28 tabs 12/17/23 tablet armodafinil 150 mg tablet (Nuvigil) 150 mg PO QAM 30 d ays #30 tabs 05/05/24 albuterol sulfate 90 mcg/actuation 2 inh inhalation Q4 -6H PRN 06/29/24 aerosol inhaler shortness of breath or wheez ing #1 ea fluticasone propionate 115 2 puff inhalation Q12H #12 grams 06/29/24 mcg-salmeterol 21 mcg/actuation HFA inhaler (Advair HFA) amoxicillin 875 mg-potassium 1 tab PO BID 7 days #14 t abs 09/13/24 clavulanate 125 mg tablet doxycycline hyclate 100 mg tablet 100 mg PO BID 7 days #14 tabs 09/13/24 prednisone 20 mg tablet 20 mg PO DAILY 7 days #7 tab s 09/13/24 Allergies Allergy/AdvReac Type Severity Reaction Status Date / Time No Known Allergies Allergy Verified 09/13/24 15:00 Review of Systems 2 Constitutional: Constitutional: Reports no additional constitutional complaints, Denies chills, Denies fever(s) and Denies night sweats Eyes: Eyes: Reports no additional eye complaints, Denies blurry vision, Denies change in vision, Denies diplopia, Denies eye discharge, Denies loss of vision and Denies eye pain ENT: Denies dizziness Cardiovascular: Cardiovascular: Reports no additional cardiovascular complaints, Reports chest pain, Denies lightheadedness, Denies Loss of Consciousness and Reports dyspnea Respiratory: Respiratory: Reports no additional respiratory complaints and Reports dyspnea Gastrointestinal: Gastrointestinal: Reports no additional gastrointestinal complaints, Denies abdominal pain, Denies melena, Denies hematochezia, Denies change in bowel habits and Denies change in stool character Genitourinary: Genitourinary: Denies hematuria, Denies urinary frequency, Denies dysuria, Denies urinary incontinence, Denies urinary hesitancy and Denies urinary urgency Musculoskeletal: Musculoskeletal: Reports no additional musculoskeletal complaints, Denies numbness and Denies tingling Neurologic: Denies dizziness, Denies loss of vision, Denies numbness and Denies tingling Psychiatric: Psychiatric: Reports no additional psychiatric complaints Endocrine: Endocrine: Reports no additional endocrine complaints Hematologic/Lymphatic: Hematologic/Lymphatic: Reports no additional hematologic/lymphatic complaints Allergic/Immunologic: Allergic/Immunologic: Reports no additional allergic/immunologic complaints PMF Past Medical History Attestation statement: The following information was validated with the patient. Source: old records reviewed and nursing notes reviewed Medical History Personal history of nicotine dependence Pharyngitis Asthma-COPD overlap syndrome Morbid obesity JACY on CPAP Pulmonary nodules Asthma Surgical History History of arthroscopic knee surgery S/P removal of thyroid nodule S/P left knee arthroscopy Hx of colonoscopy S/P endometrial ablation Previous back surgery Family History Family History Father Bladder cancer Mother COPD (chronic obstructive pulmonary disease) Pacemaker HTN (hypertension) Brother No problems noted. Sister No problems noted. Sister No problems noted. Daughter No problems noted. Daughter No problems noted. Other Asthma Social History Social History Household Members: Friend(s) Household Members Other:: friend Patient Tobacco Use Status: Former Tobacco user Years Smoked: 30 yrs Second Hand Smoke Exposure: No Advance Directives: No Advance Directives Information Provided: No Do you have a plan to hurt others: No Plan Physical Exam 2 Vital Signs: Vital Signs: Last Vital Signs Temp 98.0 F 09/13/24 19:27 Pulse 76 09/13/24 19:27 Resp 14 09/13/24 19:27 BP 145/69 H 09/13/24 19:27 Pulse Ox 100 09/13/24 19:27 O2 Del Method Room Air 09/13/24 19:27 BMI result Body Mass Index 34.5 Const: General: cooperative, no acute distress, alert and awake Nutritional Appearance: well nourished Orientation/consciousness: patient oriented x3 HEENT: Head: Yes normal to inspection and Yes atraumatic Ears: hearing grossly normal bilaterally and external ears normal General nose exam: Normal external nose present, no nasal discharge noted and no epistaxis Face and sinus: Yes normal facial exam, No abrasion and No laceration Mouth: Normal oral and palatal mucosa present, no drooling and no muffled voice Eyes: General: appearance normal, both eyes and all related structures P eriorbital: periorbital findings normal Eyelids: Yes eyelids normal C onjunctivae: conjunctivae normal Pupils: Equal, round and reactive pupils present EOM: EOMs intact bilaterally Neck: Neck: Yes normal visual inspection, Yes full ROM and Yes no lymphadenopathy Resp: Effort & Inspection: normal respiratory effort, able to speak in complete sentences and Actively coughing Auscultation: wheezes Neuro: General: patient oriented x3, moves all extremities and CN's II-XI intact bilaterally Cranial nerves: Yes Equal, round and reactive pupils present Cognition (Neuro): normal cognition Extrem: General: Yes normal to inspection, Yes full ROM and Yes capillary refill normal Psych: Appearance: grossly normal Mental Status: mental status grossly normal Affect: normal affect Attitude: cooperative Thought process: N ormal thought process present Thought content: Normal thought content present Insight: Good insight present (Psych) Course Course Course Narrative: 09/13/24 1504 ECHO Brooke This is a Rapid Medical Examination (RME) performed by Hodan Ferrell PA-C in triage. Full HPI, ROS, assessment and treatment plan per primary provider in the Main ED. Hx: 63 yo F here w/ chest pain/tightness, rad down R arm, lethargy, SOB. hx asthma not using inhaler. feels like she cannot get a full breath. intermittent cough. Plan: labs, ekg, viral swabs Medical Decision Making Medical Decision Making MDM Narrative: Patient is a 63 year old assigned female at with a history of asthma-COPD overlap syndrome and JACY presenting to the emergency department today with chest pain / tightness and intermittent shortness of breath. Patient's physical exam showed wheezing throughout with a dry cough. Patient's blood work was unremarkable. Patient's EKG was unremarkable. Patient's chest x-ray showed no acute process. Patient's clinical presentation is most consistent with a URI in the presence of asthma-COPD overlap. I explained my physical exam findings as well as all test results to the patient. I answered all questions asked by the patient. I stressed the importance of the patient taking her medication as directed (either prescribed or as the over the counter packaging recommends). I stressed the importance of the patient following up with her primary care provider. I stressed the importance of the patient returning to the emergency department immediately if her symptoms were to worsen or if she were to develop any dizziness, shortness of breath, difficulty breathing, chest pain, blurry vision, loss of vision, nausea, vomiting, abdominal pain, fever, chills, back pain, or any other complaints. Patient verbalized agreement and understanding with this treatment plan and discharge. Differential Diagnosis Differential Diagnoses: The differential diagnosis associated with the presentation includes Asthma exacerbation COPD exacerbation Viral illness PNA Admission/Observation Consideration of admission/observation: Escalation of care including admission/observation considered Patient would have been admitted to the hospital had her work up had any findings where hospital admission was appropriate and her clinical presentation warranted hospital admission. Lab Data [facility] Lab Attestation statement: I reviewed the patient's lab results. My interpretation of these results are in the [facility] Rationale portion of this note. 09/13/24 17:00 09/13/24 17:01 Labs: Lab Results 09/13/24 09/13/24 Range/Units 17:00 17:01 WBC 7.4 (4.8-10.8) X10*3/uL RBC 4.67 (4.20-5.50) X10*6/uL Hgb 14.0 (12.0-16.0) g/dl Hct 41.7 (37.0-47.0) % MCV 89.3 (80.0-98.0) fL MCH 30.0 (27.0-33.0) pg MCHC 33.6 (31.0-35.0) g/dl RDW 12.5 (11.0-16.0) % Plt Count 333 (160-400) X10*3/uL MPV 9.7 (9.4-12.3) fL Immature Gran % (Auto) 0.1 (0.0-0.4) % Neut % (Auto) 65.4 (45-73) % Lymph % (Auto) 23.6 (20-40) % Dundy % (Auto) 9.1 (2-11) % Eos % (Auto) 1.0 (0-4) % Baso % (Auto) 0.8 (0-2) % Lymph # (Auto) 1.7 (1.2-4.9) X10*3/uL Dundy # (Auto) 0.7 (0.1-1.2) X10*3/uL Eos # (Auto) 0.1 (0.0-0.4) X10*3/uL Baso # (Auto) 0.1 (0.0-0.2) X10*3/uL Abs Immat Gran (auto) 0.01 (0.00-0.03) X10*3/uL Absolute Neuts (auto) 4.8 (2.0-8.3) x10*3/uL Absolute Nucleated RBC 0.000 (0.0-0.012) X10*3/uL Nucleated RBC % (auto) 0.0 (0.0-0.2) /100WBC Sodium 141 (135-145) mmol/L Potassium 3.8 (3.3-5.1) mmol/L Chloride 105 (96-108) mmol/L Carbon Dioxide 27 (22-29) mmol/L Anion Gap 13 (12-20) BUN 14 (9-16) mg/dL Creatinine 0.75 (0.5-1.4) mg/dL Estim Creat Clear Calc 79.9 Estimated GFR > 60 Random Glucose 95 (60-115) mg/dL Calcium 9.4 (8.4-10.2) mg/dL Magnesium 2.4 (1.6-2.6) mg/dL Total Bilirubin 0.4 (0.0-1.0) mg/dL AST 22 (5-31) U/L ALT 21 (0-31) U/L Alkaline Phosphatase 62 (39-117) U/L Troponin I High Sens < 2.7 (<3.5-17.0) ng/L Total Protein 7.3 (6.5-8.0) g/dL Albumin 4.7 (3.5-5.0) g/dL Influenza Type A (PCR) NEGATIVE (Negative) Influenza Type B (PCR) NEGATIVE (Negative) RSV RNA Qual (PCR) NEGATIVE (Negative) SARS-CoV-2 RNA (RT-PCR) NEGATIVE (Negative) Independent Interpretation I performed an independent interpretation of an: EKG and Plain X-Ray Interpretation: My interpretation is in agreement with the radiologist's impression of this imaging study. L EXAMINATION: XR CHEST CLINICAL INFORMATION: chest pain COMPARISON: 08/25/2023 TECHNIQUE: 2 views of the chest were obtained. FINDINGS: The cardiac, hilar, and mediastinal contours are normal. The lungs are clear bilaterally. There is no pneumothorax or pleural effusion. There is no focal osseous or soft tissue abnormality. XR/XR chest 2V IMPRESSION: No active pulmonary disease. Electronically signed by: Bc Griffith MD 09/13/2024 03:54 PM EDT RP Dictated By: Bc Griffith MD Signed By: Electronically signed by Bc Griffith MD 09/13/24 1554 I independently interpreted this EKG and am in agreement with the below findings: Vent. Rate: 87 BPM Atrial Rate: 87 BPM P-R Int: 146 ms QRS Dur: 80 ms QT Int: 358 ms P-R-T Axes: * -26 111 degrees QTcB Int: 430 ms Normal sinus rhythm Anterolateral infarct, age undetermined Electronically Signed By: REJI HUGO Dictated By: Reji Hugo MD Signed By: Electronically signed by Reji Hugo MD 09/13/242038 Radiology Impression Discussion of test interpretation with radiology: I have reviewed the radiologist's reading. Prescription Management I considered prescription management with: Antibiotic (Patient prescribed an antibiotic to cover for atypical PNA / COPD Exacerbation) Discharge Plan Discharge Clinical Impression: Cough, URI (upper respiratory infection) Patient Disposition: Home, Self-Care Instructions: Upper Respiratory Infection (DC) Additional Instructions: Follow up with your primary care provider. Return to the emergency department immediately if your symptoms worsen or if you develop any numbness, tingling, dizziness, shortness of breath, difficulty breathing, chest pain, blurry vision, loss of vision, nausea, vomiting, abdominal pain, fever, chills, back pain, or any other complaints. Please see the information below about our Patient Portal. If you are not yet enrolled in the [facility] Patient Portal, you will receive an enrollment email invitation following your visit to any [facility] setting. You may also self-enroll in the Patient Portal by visiting our website: [email or web address] The following information is required to access the Patient Portal: - Your [facility] Medical Record Number - Your personal home email address (must match what is in your electronic medical record, Registration staff can assist with this) - Name - Date of Capabilities of the Patient Portal: - Message some providers - View upcoming appointments - Access your health summary, medical history, and visit history - View current conditions and allergies - View procedure and lab results - View your medications, including guidelines, side effects, and precautions - Complete pre-appointment questionnaires requested by your provider - Ready summary reports of your office visits and procedures To access the Patient Portal Mobile [employer], follow these directions: - Search [place] in the [employer] Store or [employer] Store - Download the Aliza - Search for [facility] - Enter your login/password Prescriptions: New doxycycline hyclate 100 mg tablet 100 mg PO BID 7 Days Qty: 14 0RF amoxicillin-pot clavulanate 875-125 mg tablet 1 tab PO BID 7 Days Qty: 14 0RF prednisone 20 mg tablet 20 mg PO DAILY 7 Days Qty: 7 0RF No Action Magic Mouthwash Diphen/Lido/Antacid 1:1:1 240 mL suspension 5 ml PO Q8H PRN (Reason: sore throat) 21 Days Qty: 240 0RF Rx Instructions: Lidocaine Viscous 2 % 80mL; diphenhydramine 12.5 mg/5 mL 80mL; aluminum-mag hydrox-simeth [id number]/5mL 80mL doxycycline monohydrate 100 mg tablet 100 mg PO BID 14 Days Qty: 28 0RF codeine-guaifenesin 10-100 mg/5 mL liquid 10 ml PO Q6H PRN (Reason: cough) 10 Days Qty: 300 0RF armodafinil [Nuvigil] 150 mg tablet 150 mg PO QAM 30 Days Qty: 30 3RF albuterol sulfate 90 mcg/actuation HFA aerosol inhaler 2 inh inhalation Q4-6H PRN (Reason: shortness of breath or wheezing) Qty: 1 2RF fluticasone propion-salmeterol [Advair HFA] 115-21 mcg/actuation HFA aerosol inhaler 2 puff inhalation Q12H Qty: 12 0RF hydrochlorothiazide 12.5 mg tablet 25 mg PO QAM duloxetine 20 mg capsule,delayed release(DR/EC) 20 mg PO BID metronidazole 0.75 % cream topical DAILY omeprazole 20 mg capsule,delayed release(DR/EC) PO DAILY PRN azithromycin 250 mg tablet See Rx Instructions PO .COMPLEX Qty: 6 0RF Rx Instructions: For 250 mg dose pack: take 500 mg today (day 1), then 250 mg for 4 days (days 2-5) PO prednisone 20 mg tablet 40 mg PO DAILY Qty: 10 0RF ipratropium-albuterol 0.5 mg-3 mg(2.5 mg base)/3 mL solution for nebulization 3 ml inhalation Q6H PRN (Reason: wheezing) Qty: 90 0RF codeine-guaifenesin 10-100 mg/5 mL liquid 10 ml PO Q6H PRN (Reason: cough) Qty: 473 0RF Wegovy 0.25 mg/0.5 mL pen injector 0.25 mg subcut QWEEK Rx Instructions: administer weeks 1 through 4 of therapy Referrals: Laine Angulo MD [Primary Care Provider, Internal Medicine] Interventions: ED Discharge Assessment Last Done: 09/13/24 19:27 Discharge Date/Time: 09/13/24 19:29 Print Language: Indonesian
[2024-09-13 17:06] LABS: MANUAL DIFF FLAG NO
[2024-09-13 17:09] LABS: Hematocrit 41.7 % (37.0-47.0); Hemoglobin 14.0 g/dl (12.0-16.0); Imm Gran Abs Auto 0.01 X10*3/uL (0.00-0.03); Imm Gran Pct Auto 0.1 % (0.0-0.4); Lymphocytes Absolute Auto 1.7 X10*3/uL (1.2-4.9); Mean Corpuscular HGB Conc 33.6 g/dl (31.0-35.0); Mean Corpuscular Hemoglobin 30.0 pg (27.0-33.0); Mean Corpuscular Volume 89.3 fL (80.0-98.0); NRBC Abs Auto 0.000 X10*3/uL (0.0-0.012); NRBC Pct Auto 0.0 /100WBC (0.0-0.2); Platelet Count 333 X10*3/uL (160-400); Red Blood Count 4.67 X10*6/uL (4.20-5.50); White Blood Count 7.4 X10*3/uL (4.8-10.8)
[2024-09-13 17:22] LABS: Alanine Aminotransferase 21 U/L (0-31); Albumin Level 4.7 g/dL (3.5-5.0); Alkaline Phosphatase 62 U/L (39-117); Anion Gap 13 (12-20); Aspartate Amino Transferase 22 U/L (5-31); Blood Urea Nitrogen 14 mg/dL (9-16); Calcium 9.4 mg/dL (8.4-10.2); Carbon Dioxide 27 mmol/L (22-29); Chloride 105 mmol/L (96-108); Creatinine Clr Calc Pharmacy 79.9; Estimated Glomerular Filt Rate > 60; Magnesium 2.4 mg/dL (1.6-2.6); Potassium 3.8 mmol/L (3.3-5.1); Sodium 141 mmol/L (135-145); Total Protein 7.3 g/dL (6.5-8.0)
[2024-09-13 17:30] LABS: Troponin-I High Sensitivity < 2.7 ng/L (<3.5-17.0)
[2024-09-13 17:44] LABS: Resp Syncy Virus RNA Qual PCR NEGATIVE (Negative); SARS COV2 PCR INHOUSE NEGATIVE (Negative)
[2024-09-13 19:00] VITALS: BP 145/69; PULSE 76; RESP 14; TEMP 36.7; O2SAT 100
--- OUTSIDE RECORDS SUMMARY | 2024-09-13 19:13 | XMS_ITS | Clinical Summary ---
Author Organization [facility] Address [address] [place] [address] Care Team Providers Care Enrollment Nurse Name Role Phone Unavailable Primary Care Provider [...] 2023-2 5 season) 2023 Influenza Vaccine (#1) 2024 RSV 60+ (1 - 1-dose 75+ series) 12/15/2034 HIB Vaccines Aged Out No longer eligi ble based on patient's age to complete this topic HPV Vaccines (No Doses Required) Completed Hepatitis A Vaccines Aged Out No long [...]
--- NOTE | 2024-09-13 19:26 | PC.NURSE ---
Pt a&Ox4, no signs of distress. Pt denies pain at this time Plan of care ongoing.
[2024-09-13 19:27] VITALS: BP 145/69; PULSE 76; RESP 14; TEMP 36.7; O2SAT 100
== END 2024-09-13 19:29 | disposition home or self-care (01) ==
PROVIDERS: Physician Assistant Medical; Emergency Provider Emergency Medicine; PCP Internal Medicine
DX: J06.9 Acute upper respiratory infection, unspecified (principal); R07.9 Chest pain, unspecified; R06.02 Shortness of breath; J44.9 Chronic obstructive pulmonary disease, unspecified; Z79.899 Other long term (current) drug therapy
CPT/HCPCS: 36415; 71046; 80053; 83735; 84484; 85025; 87637; 93005; 99283; 99284

== ENCOUNTER → 2024-09-13 14:32 | Outpatient (BNV) | payer MEDICARE, MEDICAID, SELFPAY | PROVIDERS: Emergency Provider Emergency Medicine; PCP Internal Medicine; Visit Provider Internal Medicine | DX: R07.89 Other chest pain (principal); R94.31 Abnormal electrocardiogram [ECG] [EKG] | CPT/HCPCS: 93010 ==

== ENCOUNTER → 2024-09-13 15:00 | Outpatient (BNV) | payer MEDICARE, MEDICAID, SELFPAY | PROVIDERS: PCP Internal Medicine; Visit Provider Radiology Diagnostic Radiology | DX: R07.9 Chest pain, unspecified (principal) | CPT/HCPCS: 71046 ==

== ENCOUNTER 2024-12-08 08:52 | Outpatient (AMB) | payer MEDICARE, MEDICAID, SELFPAY ==
[2024-12-08 08:53] VITALS: BP 120/72; PULSE 66; O2SAT 97; BMI 33.6
--- NOTE | 2024-12-08 08:53 | MHC.OFFVIS ---
Vital Signs 12/08/24 08:53 Height 5 ft 3 in Weight 189 lb 9.561 oz BMI 33.6 BP 120/72 Blood Pressure Location Lt brachial Position Sitting Pulse 66 Pulse Source Pulse Oximeter Pulse Oximetry (%) 97 Oxygen Delivery Method Room Air Intake Visit Reasons: Cough Strategies Analyst Required: No Accompanied by: Self / Same As Patient Allergies No Known Allergies Allergy (Verified 12/08/24 08:56) HPI Comments Details: The patient is a 63-year-old woman with a known history of asthma, pulmonary nodules and obstructive sleep apnea on CPAP. Her respiratory therapy has been doing well on her current therapy. Although, she does complaint of tremors using the Symbicort. We did talk about trying to reduce the dose to 1 puff twice a day. however, if she continues with adverse side effects we can consider long-acting muscarinic antagonist. She does not use her rescue inhaler more than twice a week at this time. She does use her CPAP. The CPAP therapy continues to be affecting beneficial. Her new mask is much improved. She does use her CPAP more than 4 hours a night. In regards to her pulmonary nodules last CT scan of the chest personally reviewed by me was for January 2019. she is scheduled to have a repeat CT scan next month. She did also have some atelectasis/ pulmonary fibrosis noted on her last CT scan. 04/30/2021 the patient is here for a pulmonary follow-up visit. She is feeling better. She completed the course of antibiotics with good effect. She denies any significant coughing or shortness of breath or wheezing. Although still does not feel 100%. The patient has been using her CPAP. The CPAP therapy continues to be affecting beneficial. We did provide her with nasal pillows which for her seemed to work better than the full face mask although they bother her nostrils. Therefore, I will provide her with a N30i nasal cradle that she will try to see if she tolerates that better. Otherwise she continues with respiratory therapy 12/28/2021 the patient is here for a pulmonary follow-up visit. Overall the patient has been doing well. She did bring her CPAP. She has been using the CPAP more than 4 hours a night. The therapy has been affecting beneficial. We did not have to adjust her pressures since her AHI is below 1. the machine is still working well and she is getting supplies readily to her DME company. However, she has been getting a lot of condensation on the tubing. She does not have the heated tubing. I will send a prescription to her DME company requesting specifically heated tubing for her AirSense 10 APAP. In regards of her asthma she seems to be stable on the Symbicort. She is using it daily. She has not required her rescue inhaler. The patient is looking to exercise and lose weight. Although he has had hard time. She is been considering bariatric surgery. I did recommend she needs evaluate the possibility of medical weight loss programs. 12/30/2022 the patient is here for a pulmonary follow-up visit. Overall she is doing well from a respiratory status. She continues uses Symbicort inhaler. Next year is going to be off sedation she is going to have to change based on our formulary. Will deal with that next year. She has not had to use any prednisone and she has not had to use her rescue inhaler. She does complaint of right lower extremity pain and swelling. This been going on for few weeks. She is concerned about a potential blood clot. The patient does not give a history. Although because of her symptoms will go ahead and request an ultrasound to rule out DVT. The patient also has been using her CPAP at nighttime. CPAP therapy continues to be affecting beneficial. She does use it for more than 4 hours a night. The last time looked machine her settings were good and her AHI was well below 1. The patient is considering weight loss programs. She does not want have surgery. She is going to look into medical weight loss at this time. She will continue with current respiratory therapy will follow-up in a year's time. 10/09/2023 the patient is here for a pulmonary follow-up visit. The patient overall has been doing fair. At least from a CPAP standpoint the patient has been doing well. The CPAP therapy has been affecting beneficial. She does use her machine every night for more than 4 hours. She did bring it in. She does have an over AirSense 10. Her AHI is well below 1 which is reassuring. We did not have to make any changes on the actual settings. Although I did adjust the temperature and humidity. I did teach her how to use it for her own. Respiratory was the patient is doing well on the current respiratory inhalers. She is also participating in the lung cancer screening program and has been demonstrates stable nodules which is reassuring. We personally reviewed the CT scan together. In the meantime the patient has been having this issue with muscle weakness and pain. She did have an elevated sedimentation rate. SAPPHIRE negative. She does have some increased shortness of breath therefore unclear if this is a component of myositis that may be contributing to her shortness of breath. [id number] severity. Will go ahead and request additional blood work to see if this any myositis component or any connective tissue disease related disease. Indeed it will be important specially if is resulting worsening respiratory symptoms. Otherwise will follow-up in 6-12 months. The patient has any issues prior to the next visit she is to call for an earlier evaluation. 04/06/2024 the patient is here for a pulmonary follow-up visit. The patient overall is doing well. The patient did get a new PAP therapy. The therapy has been affecting beneficial. She is still using the N30 I mask. She has very good filling. The patient has AHI is also well below 1. Current average pressure is 9 cm. Although, she feels like the machine is not giving her adequate pressure. Therefore, we got rid of the ramp she is going to start starting 8 and maximum pressure 16. In the meantime asthma has been stable. She has inhalers but she has not required them. In addition to that she just started a weight loss injection for her significant morbid obesity. She has already lost about 20 lb since she is very motivated. She is already feeling better with less lower extremity edema. This should also help her sleep apnea. She does have a CT scan scheduled for sometime in the spring of 2024. This is through the lung cancer screening program. Will follow-up in the fall. If any issues arise prior to that she will call for an earlier assessment. 12/08/2024 the patient is here for pulmonary follow-up visit. She does complaint of having hard time taking a deep breath in. Feels like his limited. Feels breathless. She has been using the Advair with minimal improvement. The patient had been better on Symbicort. The patient is participating in the lung cancer screening program. The last CT scan was back in June 2024 demonstrating small pulmonary nodules consistent with a rads 2. Her last PFTs were back in 2019. No significant obstruction then. The patient does use CPAP. CPAP therapy has been affecting beneficial although she is complaining of very very dry mouth. She does use nasal pillows. We have switched to a fullface mask. Will request an F 40 mask from her current DME company, [employer] now in order for them to exchange any supplies that are coming in in order for her to get her new mask soon. The patient will return in 4-6 months will have her get PFTs and she should be have any low-dose CT scan sometime in the spring in part of the lung cancer screening program. If she has any issues prior to that she will call. I will also have the patient get blood work prior to the next visit in order to address the question of biologics and see if she will benefit from them. She is also having significant bruising of her skin. Will check a hemoglobin also platelets and INR she can follow up with her primary care. [facility] Medical History Personal history of nicotine dependence Pharyngitis Asthma-COPD overlap syndrome Morbid obesity JACY on CPAP Pulmonary nodules Asthma Surgical History History of arthroscopic knee surgery S/P removal of thyroid nodule S/P left knee arthroscopy Hx of colonoscopy S/P endometrial ablation Previous back surgery Family History Father Bladder cancer Mother COPD (chronic obstructive pulmonary disease) Pacemaker HTN (hypertension) Brother No problems noted. Sister No problems noted. Sister No problems noted. Daughter No problems noted. Daughter No problems noted. Other Asthma Social History Household Members: Friend(s) Household Members Other:: friend Patient Tobacco Use Status: Former Tobacco user Years Smoked: 30 yrs Second Hand Smoke Exposure: No Review of Systems Const Denies night sweats and Reports weight loss ENT Denies change in voice, Reports dry mouth, Denies hoarseness, Denies lip swelling, Denies mouth pain, Reports nasal congestion, Denies nasal discharge, Denies sore throat and Denies tongue swelling Card Denies chest pain Resp Reports cough GI Denies abdominal pain Musc Reports as per HPI, Reports myalgias and Reports muscle weakness Neuro Denies Neuro-related abnormal movements Psych Denies no additional complaints Tseven/Lymph Denies easy bleeding and Denies lymphadenopathy Aller/Immun Denies lip swelling and Denies tongue swelling Physical Exam Vital Signs: Last Vital Signs Pulse 66 12/08/24 08:53 BP 120/72 12/08/24 08:53 Pulse Ox 97 12/08/24 08:53 Oxygen Delivery Method Room Air 12/08/24 08:53 BMI result Body Mass Index 33.6 Const General: alert Orientation/consciousness: oriented to person, oriented to place and oriented to time Neck Neck: Yes normal visual inspection, Yes full ROM and Yes no lymphadenopathy Chest Chest palpation & inspection: normal inspection of the chest Resp Effort & Inspection: normal respiratory effort Auscultation: clear to auscultation bilaterally and no wheezes Cardio Rate: regular rate Rhythm: regular rhythm Heart sounds: S1 normal heart sound present and S2 normal heart sound present GI Palpation (GI): Soft to palpation and nontender Auscultation: normal bowel sounds Skin General skin exam: rashes and/or lesions noted Neuro General: oriented to person, oriented to place and oriented to time Motor exam (neuro): Abnormal motor strength present (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 her last CT scan demonstrated subcentimeter pulmonary nodules in addition to bilateral atelectasis/ scarring Code(s): R91.8 - Other nonspecific abnormal finding of lung field Category: Medical (4) Right leg swelling: Code(s): M79.89 - Other specified soft tissue disorders Category: Medical (5) Asthma-COPD overlap syndrome: Code(s): J44.9 - Chronic obstructive pulmonary disease, unspecified Category: Medical (6) Bronchitis: Code(s): J40 - Bronchitis, not specified as acute or chronic Category: Medical Plan Start Breztri BID short-acting beta agonist as needed Continue CPAP therapy, provided N30i, Provided chin strap. Adjusted APAP LDCT 06/2025 Bloodwork Follow-up in 6-12 months Orders: Orders Complete Blood Count Auto Diff Today J40 - Bronchitis, not specified as acute or chronic, J44.9 - Chronic obstructive pulmonary disease, unspecified Basic Metabolic Panel Today J40 - Bronchitis, not specified as acute or chronic, J44.9 - Chronic obstructive pulmonary disease, unspecified Prothrombin Time INR Today J40 - Bronchitis, not specified as acute or chronic, J44.9 - Chronic obstructive pulmonary disease, unspecified Immunoglobulin E Today J40 - Bronchitis, not specified as acute or chronic, J44.9 - Chronic obstructive pulmonary disease, unspecified Medications: New pknwvumawi-znnymuwe-ojvopmehua 160-9-4.8 mcg/actuation (Breztri Aerosphere) 2 inhalations inhalation BID 10.7 grams 0RF Coding Level of Care Code Est Pt Level 4 (19543) Complex EM visit Add On G2211 Diagnoses Moderate persistent asthma without complication J45.40 Asthma complication type: uncomplicated Asthma persistence: persistent Asthma severity: moderate JACY on CPAP G47.33; Z99.89 Pulmonary nodules R91.8 Right leg swelling M79.89 Asthma-COPD overlap syndrome J44.9 Bronchitis J40 Time Spent (min) 17
== END 2024-12-08 09:25 | disposition home or self-care (01) ==
PROVIDERS: PCP Internal Medicine; Visit Provider Hospitalist
DX: J45.40 Moderate persistent asthma, uncomplicated (principal); G47.33 Obstructive sleep apnea (adult) (pediatric); Z99.89 Dependence on other enabling machines and devices; R91.8 Other nonspecific abnormal finding of lung field; M79.89 Other specified soft tissue disorders; J44.9 Chronic obstructive pulmonary disease, unspecified; J40 Bronchitis, not specified as acute or chronic
CPT/HCPCS: 99214; G2211

== ENCOUNTER → 2024-12-08 08:52 | Outpatient (BNVA) | payer MEDICARE, MEDICAID, SELFPAY | PROVIDERS: PCP Internal Medicine; Visit Provider Hospitalist | DX: J44.9 Chronic obstructive pulmonary disease, unspecified (principal); M60.9 Myositis, unspecified; H04.123 Dry eye syndrome of bilateral lacrimal glands; J45.40 Moderate persistent asthma, uncomplicated; G47.33 Obstructive sleep apnea (adult) (pediatric); Z99.89 Dependence on other enabling machines and devices; R91.8 Other nonspecific abnormal finding of lung field; M79.89 Other specified soft tissue disorders; J40 Bronchitis, not specified as acute or chronic | CPT/HCPCS: 99212 ==

== ENCOUNTER 2024-12-22 10:29 | Outpatient (REF) | payer MEDICARE, MEDICAID, SELFPAY ==
[2024-12-22 10:45] LABS: MANUAL DIFF FLAG NO
[2024-12-22 11:11] LABS: Hematocrit 41.1 % (37.0-47.0); Hemoglobin 13.5 g/dl (12.0-16.0); Imm Gran Abs Auto 0.02 X10*3/uL (0.00-0.03); Imm Gran Pct Auto 0.3 % (0.0-0.4); Lymphocytes Absolute Auto 1.4 X10*3/uL (1.2-4.9); Mean Corpuscular HGB Conc 32.8 g/dl (31.0-35.0); Mean Corpuscular Hemoglobin 29.9 pg (27.0-33.0); Mean Corpuscular Volume 91.1 fL (80.0-98.0); NRBC Abs Auto 0.000 X10*3/uL (0.0-0.012); NRBC Pct Auto 0.0 /100WBC (0.0-0.2); Platelet Count 353 X10*3/uL (160-400); Red Blood Count 4.51 X10*6/uL (4.20-5.50); White Blood Count 7.2 X10*3/uL (4.8-10.8)
[2024-12-22 11:31] LABS: INTERNATIONAL NORM RATIO 1.0 (0.9-1.1); Prothrombin Time 11.3 SEC (10.9-12.4)
[2024-12-22 11:37] LABS: Anion Gap 12 (12-20); Blood Urea Nitrogen 12 mg/dL (9-16); Calcium 9.5 mg/dL (8.4-10.2); Carbon Dioxide 30 mmol/L (22-29); Chloride 103 mmol/L (96-108); Estimated Glomerular Filt Rate > 60; Potassium 3.2 mmol/L (3.3-5.1); Sodium 142 mmol/L (135-145)
--- OUTSIDE RECORDS SUMMARY | 2024-12-22 13:14 | XMS_ITS | Clinical Summary ---
Author Organization [facility] Address [address] [place] [address] Care Team Providers Care Appraiser Auditor Name Role Phone Unavailable Primary Care Provider [...] of 2) 12/15/2009 COVID-19 Vaccine ( - 2024-2 6 season) 2024 Influenza Vaccine (#1) 2024 Fall Risk Screening 12/15/2024 RSV 60+ (1 - 1-dose 75+ series) [...]
== END 2024-12-22 10:30 | disposition home or self-care (01) ==
LOC: HO.LAB 10:29
PROVIDERS: PCP Internal Medicine; Visit Provider Hospitalist
DX: J44.9 Chronic obstructive pulmonary disease, unspecified (principal); J40 Bronchitis, not specified as acute or chronic; Z51.81 Encounter for therapeutic drug level monitoring
CPT/HCPCS: 36415; 80048; 82785; 85025; 85610